=== PATIENT | female | born 1935 | race Caucasian/White ===

== ENCOUNTER 2017-11-09 10:07 | Outpatient (CLI) | payer BC, MEDICARE | END 2017-11-09 10:08 | disposition home or self-care (01) | LOC: BICMRI 10:07 | PROVIDERS: ATTEND Nurse Practitioner Family | DX: M48.062 Spinal stenosis, lumbar region with neurogenic claudication (principal) | CPT/HCPCS: 72148 ==

== ENCOUNTER 2017-12-12 13:59 | Outpatient (CLI) | payer BC, MEDICARE ==
[2017-12-12 15:31] LABS: Anion Gap 11 mmol/L (10-20); BUN (Urea Nitrogen) 11 mg/dL (9.8-20.1); Calc. Creatinine Clearance 0 mL/min (70-130); Calcium 9.8 mg/dL (7.8-10.44); Carbon Dioxide 26 mmol/L (23-31); Chloride 98 mmol/L (98-107); Estimated GFR-MDRD 64; Glucose 104 mg/dL (83-110); Potassium 4.1 mmol/L (3.5-5.1); Sodium 131 mmol/L (136-145)
== END 2017-12-12 14:00 | disposition home or self-care (01) ==
LOC: LABBT 13:59
PROVIDERS: ATTEND Neurological Surgery
DX: Z01.818 Encounter for other preprocedural examination (principal); M54.16 Radiculopathy, lumbar region
CPT/HCPCS: 80048

== ENCOUNTER 2017-12-16 05:38 | Day surgery (SDC) | payer BC, MEDICARE ==
[2017-12-12 14:18] VITALS: BMI 23.6
--- NOTE | 2017-12-15 19:35 | HP ---
HISTORY OF PRESENT ILLNESS: Ms. Knox is a very pleasant 82-year-old woman presenting for roughly 6 months' worth of right lower extremity L4 pain. She previously had left lower extremity L4 pains, w hich were treated well with epidural steroid injections, but as that improved, her right side flared and it has now not been amenable to the same injection. She has an MRI from [facility] that rev eals severe right-sided foraminal narrowing at L4. She does also have severe stenosis to the left at L3, but this again is no longer a problem. PAST MEDICAL HISTORY: Significant for gastroesophageal reflux disease, hypertension, hyperlipidemia, anxiety, osteoarthritis. CURRENT MEDICATIONS: Aspirin, tramadol, gabapentin, vitamin D, meloxicam, omeprazole, alprazolam, hy drochlorothiazide, atorvastatin, and levothyroxine. PAST SURGICAL HISTORY: Tonsillectomy, hysterectomy, cataract resection. PHYSICAL EXAMINATION: NEUROLOGIC: The patient is alert and oriented x3. Her gait is slow and antalgic. Lower extremity m otor exam reveals normal bilateral lower extremity strength. ASSESSMENT: Lumbar radiculopathy. PLAN: Dr. Hutchinson met with the patient, reviewed imaging, and advocated for a right L4-L5 facetectomy and foraminotomy. He explained to the patient the risks, benefits, and alternatives of the procedure . The patient expressed understanding and would like to move forward with surgery as discussed. I d o believe the patient is mentally competent and capable of making medical decisions for herself and w e will proceed with surgery as planned.
[2017-12-16] MEDS ORDERED: CEFAZOLIN/Water 2 GM/20 ML SYRINGE ONE ×2 (06:05→11:33)
[2017-12-16] MEDS ORDERED: Bupivacaine HCl 0.5%/Epinephrine 1:200,000/PF 30 ml Vial ONE (06:16)
[2017-12-16] MEDS ORDERED: Thrombin 5000 UNITS/5 ML VIAL ONE (06:16)
[2017-12-16] MEDS ORDERED: Fentanyl 100 MCG/2 ML VIAL ONE ×2 (06:30→09:08)
--- NOTE | 2017-12-16 09:50 | OP ---
DATE OF PROCEDURE: 12/16/2017 SURGEON: Randy Hutchinson M.D. IT SALES EXECUTIVE: Zak Dow PA-C INDICATION: Pain. DIAGNOSIS: Lumbar radiculopathy. PROCEDURE: Right L4 facetectomy. ANESTHESIA: General. TECHNIQUE: The patient was brought into the operating room and placed under general anesthesia. She was flipped from a supine or prone position on the operating room table. A linear incision was plan chandler over the L4 segment. After prepping and draping and after an appropriate operative pause, the in cision was created. The soft tissues were swept right of midline. A self-retaining retractor was pl aced in the wound for optimal exposure. After confirming the appropriate level with C-arm fluoroscop y, a high-speed cutting drill bit as well as 2, 3 and 4 mm Kerrisons were used to remove the facet marck int on the right at L4. The exiting L4 nerve root was identified and found to be decompressed at the end of the procedure. The wound was irrigated. Hemostasis was maintained throughout. The wound wa s then closed in anatomic layers and a pressure dressing was applied. There were no known procedural complications.
[2017-12-16] MEDS ORDERED: PHENYLEPHRINE-NS 100 MCG/ML 10 ML SYRINGE ONE (19:52)
[2017-12-16] MEDS ORDERED: ePHEDrine/0.9% NaCl/PF SYRINGE 50 mg/10 ml ONE (19:52)
[2017-12-16] MEDS ORDERED: PROPOFOL 200 MG/20 ML VIAL ONE (19:52)
[2017-12-16] MEDS ORDERED: Dexamethasone 20 MG/5 ML VIAL ONE (19:52)
[2017-12-16] MEDS ORDERED: Glycopyrrolate 0.2 MG/ML 5 ML SYRINGE ONE (19:52)
[2017-12-16] MEDS ORDERED: Lidocaine 1% PF 5 ML VIAL ONE (19:52)
== END 2017-12-16 13:18 | disposition home or self-care (01) ==
LOC: SDC 05:38
PROVIDERS: ATTEND Neurological Surgery
PROC: 01NB0ZZ Release Lumbar Nerve, Open Approach (ICD-10-PCS; principal; 2017-12-16)
DX: M54.16 Radiculopathy, lumbar region (principal); I10 Essential (primary) hypertension; E78.5 Hyperlipidemia, unspecified; M19.90 Unspecified osteoarthritis, unspecified site; K21.9 Gastro-esophageal reflux disease without esophagitis; F41.9 Anxiety disorder, unspecified; Z79.82 Long term (current) use of aspirin; Z79.899 Other long term (current) drug therapy; Z98.890 Other specified postprocedural states
CPT/HCPCS: 76001; 96374; J0670; J1100; J2001; J2704; J3010; J7620

== ENCOUNTER 2018-07-04 16:53 | Emergency (ER) | payer BC, MEDICARE ==
[~2018-07-04 16:53] MED LIST: ISOVUE-370 76%-LOCM 1 ML ONE
[2018-07-04 17:33] LABS: #Basophils 0.1 thou/uL (0.0-0.2); #Eosinphils 0.3 thou/uL (0.0-0.7); #Lymphocytes 3.3 thou/uL (1.20-3.40); #Monocytes 0.8 thou/uL (0.11-0.59); #Neutrophils 5.5 thou/uL (1.40-6.50); %Basophils 0.9 % (0.0-1.0); %Eosinophils 2.8 % (0.0-10.0); %Lymphocytes 33.2 % (21.0-51.0); %Monocytes 7.7 % (0.0-10.0); %Neutrophils 55.4 % (42.0-75.0); Hemoglobin 13.4 g/dL (12.0-16.0); Mean Corpuscular Hemoglobin 29.3 pg (27.0-31.0); Mean Corpuscular Volume 88.9 fL (78.0-98.0); Mean Platelet Volume 8.2 fL (7.4-10.4); Platelet Count 288 thou/uL (130-400); RBC Distribution Width 12.4 % (11.5-14.5); Red Blood Cell (RBC) Count 4.59 mill/uL (4.20-5.40); White Blood Cell (WBC) Count 9.9 thou/uL (4.8-10.8)
[2018-07-04 17:37] LABS: PTT 34.4 SEC (22.9-36.1); Prothrombin Time 13.5 SEC (12.0-14.7)
[2018-07-04 17:44] LABS: ALT (SGPT) 15 U/L (8-55); AST (SGOT) 24 U/L (5-34); Albumin 4.2 g/dL (3.4-4.8); Alkaline Phosphatase 60 U/L (40-150); Anion Gap 11 mmol/L (10-20); BUN (Urea Nitrogen) 16 mg/dL (9.8-20.1); Bilirubin, Total 0.9 mg/dL (0.2-1.2); Calc. Creatinine Clearance 0 mL/min (70-130); Calcium 9.3 mg/dL (7.8-10.44); Carbon Dioxide 27 mmol/L (23-31); Chloride 97 mmol/L (98-107); Estimated GFR-MDRD 57; Globulin 2.9 g/dL (2.4-3.5); Glucose 108 mg/dL (83-110); Lipase 17 U/L (8-78); Potassium 3.4 mmol/L (3.5-5.1); Protein, Total 7.1 g/dL (6.0-8.3); Sodium 132 mmol/L (136-145)
[2018-07-04 17:47] LABS: Troponin I Less than 0.010 ng/mL (< 0.028)
[2018-07-04] MEDS ORDERED: Pantoprazole 40 MG VIAL ONE (18:31)
[2018-07-04] MEDS ORDERED: Mag-Al 1200 mg/1200 mg/30 ML UDCUP ONE (18:33)
[2018-07-04] MEDS ORDERED: Lidocaine Viscous Sol 2% 15 ml UD Cup ONE (18:33)
[2018-07-04 19:26] LABS: Bilirubin Negative (Negative); Blood, Urine Small (Negative); Clarity TURBID (Clear); Glucose, Urine (Dipstick) Negative (Negative); Leukocyte Large (Negative); Nitrite Positive (Negative); Protein, Urine (Dipstick) Trace mg/dL (Neg-Trace); Specific Gravity, Urine 1.017 (1.002-1.036); pH, Urine 7.5 (5.0-9.0)
[2018-07-04 19:29] LABS: Bacteria/HPF 4+ HPF (None Seen); Hyaline Casts/LPF 7-10 HYALINE CAST LPF (0-3 Hyaline); Pathc Cast-AUWi Flag 1.88 (0-2.49); Squamous Epithelial 0-3 HPF (0-3)
--- NOTE | 2018-07-04 19:50 | RAD ---
PORTABLE CHEST: 07/04/18 HISTORY: Epigastric pain. The lungs appear clear. No infiltrate or vascular congestion. Heart size is normal. IMPRESSION: No acute lung process apparent. POS: [facility]
--- NOTE | 2018-07-04 20:14 | CT ---
CT ABDOMEN AND PELVIS WITH IV CONTRAST: 07/04/18 Multiple axial tomograms obtained through the abdomen and pelvis with IV enhancement. INDICATIONS: Epigastric pain. Nausea. No comparison. An abdominal ultrasound study from May 2013 confirmed cholelithiasis. FINDINGS: The lung bases are clear. The liver, spleen, and pancreas unremarkable. There is a large calcified gallstone in the gallbladder fundus measuring 1.5 cm diameter. Mild gallbladder distension and mild gallbladder wall prominence. No pericholecystic edema or inflammation identified. Adrenal glands appear normal. Kidneys unremarkab le. No hydronephrosis. Small bowel loops normal caliber. Stool throughout the colon. Diverticulosis of the left colon and sigmoid. No definite evidence of div erticulitis. Urinary bladder is mildly distended and unremarkable. Aorta normal caliber. No mass or a denopathy apparent. IMPRESSION: 1. Cholelithiasis. 2. Otherwise no acute process. POS: [facility]
== END 2018-07-04 19:37 | disposition home or self-care (01) ==
LOC: ERS 16:53
DX: K80.20 Calculus of gallbladder without cholecystitis without obstruction (principal); E03.9 Hypothyroidism, unspecified; E78.5 Hyperlipidemia, unspecified; I10 Essential (primary) hypertension; K21.9 Gastro-esophageal reflux disease without esophagitis; F41.9 Anxiety disorder, unspecified; Z79.899 Other long term (current) drug therapy; Z79.82 Long term (current) use of aspirin
CPT/HCPCS: 71045; 74177; 80053; 81003; 81015; 82274; 82553; 83605; 83690; 84484; 85025; 85610; 85730; 93005; 96374; C9113

== ENCOUNTER 2018-07-14 10:14 | Day surgery (SDC) | payer BC, MEDICARE ==
[2018-07-13 10:58] VITALS: BMI 20.9
[2018-07-14] MEDS ORDERED: Ketorolac Tromethamine 30 MG/ML VIAL ONE (10:45)
[2018-07-14] MEDS ORDERED: Levofloxacin 500 mg/D5W 100 ml Premix Bag ONE (10:46)
[2018-07-14] MEDS ORDERED: ePHEDrine/0.9% NaCl/PF SYRINGE 50 mg/10 ml ONE (11:25)
[2018-07-14] MEDS ORDERED: PROPOFOL 200 MG/20 ML VIAL ONE (11:25)
[2018-07-14] MEDS ORDERED: Bupivacaine HCl 0.5%/Epinephrine 1:200,000/PF 30 ml Vial ONE (12:02)
[2018-07-14] MEDS ORDERED: Fentanyl 100 MCG/2 ML VIAL ONE ×2 (12:07→13:35)
[2018-07-14] MEDS ORDERED: Ondansetron PF 4 MG/2 ML Vial ONE (14:16)
[2018-07-14] MEDS ORDERED: Promethazine HCl 25 MG/ML VIAL ONE (14:45)
--- NOTE | 2018-07-17 12:10 | OP ---
DATE OF PROCEDURE: 07/14/2018 PREOPERATIVE DIAGNOSIS: Chronic cholecystitis, cholelithiasis, . POSTOPERATIVE DIAGNOSIS: Chronic cholecystitis, cholelithiasis . PROCEDURE PERFORMED: Laparoscopic video cholecystectomy. ANESTHESIA: General, local of 0.5% Marcaine with epinephrine 30 mL. DESCRIPTION OF PROCEDURE: The patient was taken to the operating room under general anesthesia. The abdomen was prepared with ChloraPrep, draped in routine fashion. Local anesthetic was infiltrated in the skin and subcutaneous tissues about the operative site, 0.5% Marcaine with epinephrine was used, 30 mL total volume used. Infraumbilical incision was made. Pneumoperitoneum to 15 mmHg was obtained with a Veress needle, replaced with a 5 port and laparoscope was inserted. A right subxiphoid incision was made, a 11 port placed, right subcostal incision was made. Midclavicular and anterior axillary line with 5 ports placed. Liver appeared to be normal. Gallbladder was acutely inflamed. Fundus was grasped and reflected cephalad. Cystic artery and duct dissected free. Critical view obtain. Cystic artery was double clipped proximally dividing, the gallbladder dissected free from liver bed, obtaining good hemostasis prior to visualization. No attachment. Gallbladder and large stone removed and submitted to Pathology. Good hemostasis was ensured with the cautery. Irrigated pneumoperitoneum was evacuated. All instrument removed and all skin incisions were approximated with interrupted subdermal 4-0 Monocryl and [place] glue applied. Job ID: [id number]
== END 2018-07-14 16:22 | disposition home or self-care (01) ==
LOC: SDC 10:14
PROVIDERS: ATTEND Specialist
PROC: 0FT44ZZ Resection of Gallbladder, Percutaneous Endoscopic Approach (ICD-10-PCS; principal; 2018-07-14)
DX: K80.10 Calculus of gallbladder with chronic cholecystitis without obstruction (principal)
CPT/HCPCS: 88304; 96374; J0131; J0670; J1885; J1956; J2405; J2550; J2704; J3010

== ENCOUNTER 2019-03-17 15:26 | Emergency (ER) | payer BC, MEDICARE ==
[2019-03-17 15:56] LABS: #Basophils 0.1 thou/uL (0.0-0.2); #Eosinphils 0.3 thou/uL (0.0-0.7); #Lymphocytes 2.6 thou/uL (1.20-3.40); #Monocytes 0.7 thou/uL (0.11-0.59); #Neutrophils 3.7 thou/uL (1.40-6.50); %Basophils 1.1 % (0.0-1.0); %Eosinophils 3.8 % (0.0-10.0); %Lymphocytes 34.8 % (21.0-51.0); %Monocytes 9.8 % (0.0-10.0); %Neutrophils 50.5 % (42.0-75.0); Hemoglobin 11.9 g/dL (12.0-16.0); Mean Corpuscular HGB CONC 34.4 g/dL (32.0-36.0); Mean Corpuscular Hemoglobin 31.5 pg (27.0-31.0); Mean Corpuscular Volume 91.5 fL (78.0-98.0); Mean Platelet Volume 7.9 fL (7.4-10.4); Platelet Count 196 thou/uL (130-400); RBC Distribution Width 12.1 % (11.5-14.5); Red Blood Cell (RBC) Count 3.78 mill/uL (4.20-5.40); White Blood Cell (WBC) Count 7.4 thou/uL (4.8-10.8)
--- NOTE | 2019-03-17 16:12 | RAD ---
EXAM: CHEST ONE VIEW: 03/17/19 HISTORY: Dyspnea, shortness of breath. COMPARISON: 07/04/18. FINDINGS: Heart size is within normal limits. Mild stable linear and interstitial increased markings evidence f or some stable chronic lung change. No confluent pneumonia, overt edema, or pleural effusion. IMPRESSION: No significant acute intrathoracic disease. Atherosclerosis of the aorta with ectasia. POS: [facility]
[2019-03-17 16:32] LABS: ALT (SGPT) 10 U/L (8-55); AST (SGOT) 17 U/L (5-34); Albumin 4.2 g/dL (3.4-4.8); Alkaline Phosphatase 66 U/L (40-150); Anion Gap 14 mmol/L (10-20); BUN (Urea Nitrogen) 27 mg/dL (9.8-20.1); Bilirubin, Total 0.6 mg/dL (0.2-1.2); Calc. Creatinine Clearance 0 mL/min (70-130); Calcium 9.7 mg/dL (7.8-10.44); Carbon Dioxide 26 mmol/L (23-31); Chloride 94 mmol/L (98-107); Estimated GFR-MDRD 41; Globulin 2.7 g/dL (2.4-3.5); Glucose 101 mg/dL (83-110); Potassium 4.1 mmol/L (3.5-5.1); Protein, Total 6.9 g/dL (6.0-8.3); Sodium 130 mmol/L (136-145)
== END 2019-03-17 18:40 | disposition home or self-care (01) ==
LOC: ERS 15:26
DX: J04.0 Acute laryngitis (principal); R06.00 Dyspnea, unspecified; E03.9 Hypothyroidism, unspecified; E78.5 Hyperlipidemia, unspecified; I10 Essential (primary) hypertension; K21.9 Gastro-esophageal reflux disease without esophagitis; F41.9 Anxiety disorder, unspecified; Z79.899 Other long term (current) drug therapy
CPT/HCPCS: 71045; 80053; 83880; 84484; 85025; 93005

== ENCOUNTER 2019-10-20 10:34 | Inpatient (IN) | payer BC, MEDICARE ==
--- NOTE | 2019-10-20 11:41 | CT ---
EXAM: CT Brain WO Con PROVIDED CLINICAL HISTORY: Altered mental status COMPARISON: None FINDINGS: There is extensive intraventricular hemorrhage which appears acute, primarily within the right latera l ventricle but also within the left lateral ventricle, third and fourth ventricles. There is no evidence for hydrocephalus. There is no shift of the midline structures. The basilar cisterns are pat ent. Chronic microvascular ischemic changes are seen involving the cerebral white matter. There is no evidence for parenchymal or extra-axial hemorrhage. The extra cranial soft tissues and osseous str uctures demonstrate an unremarkable CT appearance. IMPRESSION: Intraventricular hemorrhage without hydrocephalus. Cause is not evident. Follow-up brain MRI with and without IV contrast recommended. Findings communicated to Dr. Corbin 11:38 AM 10/20/2019.
[2019-10-20] MEDS ORDERED: niCARdipine 20MG In NaCl 20 MG/200 ML BAG ONE (11:53)
[2019-10-20] MEDS ORDERED: CCU Electrolyte Replacement 1 EACH IVPB ONE (11:57)
[2019-10-20] MEDS ORDERED: Docusate 100 MG CAP PO PRN ×2 (11:57→17:37)
[2019-10-20] MEDS ORDERED: Labetalol HCl 100 MG/20 ML VIAL SLOW IVP PRN (11:57)
[2019-10-20] MEDS ORDERED: Ondansetron PF 4 MG/2 ML Vial IVP PRN (11:57)
[2019-10-20] MEDS ORDERED: Sodium Chloride 0.9% 1,000 ML IV SCH (12:00)
[2019-10-20] MEDS ORDERED: hydrALAZINE 20 MG/ML VIAL SLOW IVP PRN (12:00)
[2019-10-20] MEDS ORDERED: Magnesium Oxide 400 MG TAB PO PRN ×4 (12:28→17:40)
[2019-10-20] MEDS ORDERED: Potassium Phosphate 9 MMOL in Sodium Chloride 0.9% 100 ML IVPB PRN ×2 (12:28→17:41)
[2019-10-20] MEDS ORDERED: CCU ELECTROLYTE REPLACEMENT PROTOCOL FS PRN ×2 (12:28→17:39)
[2019-10-20] MEDS ORDERED: Potassium Chloride 40 MEQ in Premix Bag 1 BAG IVPB PRN ×2 (12:28→17:39)
[2019-10-20] MEDS ORDERED: PHOS-NAK 1 PKT PACK PO PRN ×4 (12:28→17:41)
[2019-10-20] MEDS ORDERED: Potassium Phosphate 12 MMOL in Sodium Chloride 0.9% 250 ML 250 ML IV PRN ×2 (12:28→17:41)
[2019-10-20] MEDS ORDERED: Potassium Chloride 20 MEQ TAB PO PRN ×2 (12:28→17:38)
[2019-10-20] MEDS ORDERED: Potassium Chloride 40 MEQ in Sodium Chloride 0.9% 250 ML 250 ML IVPB PRN ×2 (12:28→17:39)
[2019-10-20] MEDS ORDERED: Magnesium 2 GM/50 ML 2 GM in Premix Bag 1 BAG IVPB PRN ×2 (12:28→17:40)
[2019-10-20] MEDS ORDERED: Potassium Phosphate 15 MMOL in Sodium Chloride 0.9% 250 ML 250 ML IV PRN ×2 (12:28→17:41)
[2019-10-20 12:30] LABS: #Basophils 0.1 thou/uL (0.0-0.2); #Eosinphils 0.2 thou/uL (0.0-0.7); #Lymphocytes 2.3 thou/uL (1.20-3.40); #Monocytes 0.8 thou/uL (0.11-0.59); #Neutrophils 4.6 thou/uL (1.40-6.50); %Basophils 1.1 % (0.0-1.0); %Lymphocytes 28.5 % (21.0-51.0); %Monocytes 10.1 % (0.0-10.0); %Neutrophils 58.3 % (42.0-75.0); Mean Corpuscular HGB CONC 34.2 g/dL (32.0-36.0); Mean Corpuscular Hemoglobin 32.2 pg (27.0-31.0); Mean Corpuscular Volume 94.1 fL (78.0-98.0); Mean Platelet Volume 8.2 fL (7.4-10.4); Platelet Count 204 thou/uL (130-400); RBC Distribution Width 11.7 % (11.5-14.5); Red Blood Cell (RBC) Count 4.04 mill/uL (4.20-5.40); White Blood Cell (WBC) Count 7.9 thou/uL (4.8-10.8)
[2019-10-20 12:36] LABS: PTT 35.4 SEC (22.9-36.1); Prothrombin Time 12.8 SEC (12.0-14.7)
[2019-10-20 12:52] LABS: ALT (SGPT) 12 U/L (8-55); AST (SGOT) 20 U/L (5-34); Albumin 4.6 g/dL (3.4-4.8); Alkaline Phosphatase 44 U/L (40-110); Anion Gap 15 mmol/L (10-20); BUN (Urea Nitrogen) 25 mg/dL (9.8-20.1); CK (CPK) 83 U/L (29-168); Calc. Creatinine Clearance 0 mL/min (70-130); Carbon Dioxide 29 mmol/L (23-31); Chloride 92 mmol/L (98-107); Estimated GFR-MDRD 46; Globulin 3.1 g/dL (2.4-3.5); Glucose 86 mg/dL (83-110); Lipase 14 U/L (8-78); Potassium 3.5 mmol/L (3.5-5.1); Protein, Total 7.7 g/dL (6.0-8.3); Sodium 132 mmol/L (136-145)
[2019-10-20 13:12] LABS: CKMB 1.7 ng/mL (0-6.6)
--- NOTE | 2019-10-20 13:16 | HP ---
HISTORY OF PRESENT ILLNESS: Ms. Knox is a very pleasant 84-year-old woman, actually known to us from prior evaluation and surgery for lumbar back problems, who presents to the emergency department for roughly 40 days worth of slight confusion and perhaps cognitive slowness as compared to her normal baseline, where she is a sharp, independent woman, who actually continues to be gainfully employed. Her daughter had conversations with her on and Tuesday about coming in to be evaluated for this purpose. The patient declined doing so until this morning, where these symptoms continued to persist and have yet to acutely worsen per se. For this purpose, a CT scan of the head was performed, where she has a large right-sided intraventricular hemorrhage with extension into the left lateral ventricle as well as some into the third ventricle. The right lateral ventricle is particularly the frontal horn. It is nearly cast with acute blood. There perhaps could be some suggestion of mild early hydrocephalus in the third and bilateral lateral ventricles, though this could also be her baseline given diffuse cortical atrophy. Blood pressures initially upon presentation were in the 150 systolic; however, upon my presentation at bedside, she is at 215 systolic. Cardene will need to be started. Dr. Corbin is already on this as he told me upon my arrival until this was happening. PAST MEDICAL HISTORY: Significant for gastroesophageal reflux disease, hypertension, hyperlipidemia, anxiety osteoarthritis. CURRENT MEDICATIONS: Tramadol, gabapentin, vitamin D, meloxicam, omeprazole, alprazolam, hydrochlorothiazide, atorvastatin, levothyroxine. PAST SURGICAL HISTORY: Tonsillectomy, hysterectomy, cataract resection, and lumbar decompression. PHYSICAL EXAMINATION: The patient is alert and oriented x3. She actually recalls some specific personal facts about me from our last interaction in 2018. This is quite impressive, particularly given her age and current stage of intracerebral hemorrhage. Bilateral upper and lower extremity examination reveals normal motor strength in all movements of all extremities. She has no sensory disturbance that I discern. Speech is fluent and uninhibited. Cranial nerves are grossly intact, 2 through 11. Pupils are equal, round, and reactive to light. Extraocular moves are intact. ASSESSMENT: Intraventricular hemorrhage and altered mental status. PLAN: At this time, we will admit Ms. Knox to the ICU for close observation. She will need q.1 hour neuro checks, head of bed elevated 30 degrees. Wanting to keep her systolic pressures below 150, and we will put on p.r.n. medications for this purpose. Will repeat a head CT roughly 6 hours after the first several target around 5 o'clock this afternoon. I did have a discussion frankly with the patient and her daughter at bedside regarding the possibility of needing external ventricular drain should she developed obstructive hydrocephalus secondary to this bleed, but hopefully this does not . We will consult the Hospitalist Service for additional help regarding medical management and the care of this patient. We will also need to monitor electrolytes given again intracerebral pathology and age. Job ID: [id number]
[2019-10-20 13:53] LABS: Bacteria/HPF 4+ HPF (None Seen); Bilirubin Negative (Negative); Blood, Urine Negative (Negative); Clarity Turbid (Clear); Glucose, Urine (Dipstick) Normal (Negative); Leukocyte 500 Leu/uL (Negative); Nitrite 2+ (Negative); Protein, Urine (Dipstick) 20 mg/dL (Neg-Trace); RBC/HPF 0-3 HPF (0-3); Renal Epithelial 0-3 HPF (None Seen); Squamous Epithelial 0-3 HPF (0-3); Transitional Epithelial 0-3 HPF (None Seen); Urobilinogen Normal mg/dL (Less than 2); WBC/HPF 21-50 HPF (0-3)
[2019-10-20] MEDS ORDERED: niCARdipine 20MG In NaCl 20 MG/200 ML BAG IVPB SCH ×2 (14:15→17:45)
--- NOTE | 2019-10-20 16:32 | HP ---
PRIMARY CARE PHYSICIAN: Dr. Myra Palacios. HISTORY OF PRESENT ILLNESS: The patient is admitted to [facility] through [facility] on 10/20/2019, with intraventricular hemorrhage, altered mental status. The patient is awake, appropriate. She states she has had headache all day. She admits to confusion for a week, usually about location, currently she is oriented to October 2019, [facility]. She denies any double vision, blurred vision, dizziness, or fainting. She is unaware of any possible loss of consciousness. PAST MEDICAL HISTORY: Pertinent for hypertension, dyslipidemia, hypothyroidism, gastroesophageal reflux disease, osteoarthritis. CURRENT MEDICATIONS: Prior to admission, 1. Levothyroxine 88 mcg a day. 2. Omeprazole 20 mg a day. 3. Hydrochlorothiazide 25 mg a day. 4. Atorvastatin 10 mg a day. 5. Vitamin D3 2000 units a day. 6. Alprazolam 0.125 mg p.o. at bedtime. 7. Aspirin 81 mg a day. 8. Mobic 15 mg a day. 9. Tizanidine 2 mg p.o. t.i.d. 10. Albuterol sulfate two puffs q.6 hours p.r.n. ALLERGIES: SHE HAS NO KNOWN DRUG ALLERGIES. PAST SURGICAL HISTORY: Pertinent for tonsillectomy, hysterectomy, cataract resection bilaterally, lumbar decompression. SOCIAL HISTORY: . Full code status. Her son, Pepe Juarez, is power of harpsichord maker. Next of kin for decision making acutely is Indira Magallon. No tobacco. No alcohol. FAMILY HISTORY: Unremarkable for inheritable diseases. REVIEW OF SYSTEMS: GENERAL: See present illness. No dizziness or fainting. EYES: No double vision, blurred vision, or flashing light. EAR, NOSE, AND THROAT: No ear pain or drainage. No nasal bleeding. No trouble swallowing. CARDIAC: No chest pain, orthopnea, or paroxysmal nocturnal dyspnea. GASTROINTESTINAL: She was nauseated for a while a couple of days ago. She has had no vomiting. No abdominal pain. No diarrhea. RESPIRATIONS: No cough, wheezing, or asthma. GENITOURINARY: She has some stress incontinence. No painful urination. No blood in her urine. MUSCULOSKELETAL: No pain or swelling in her arms or legs. NEUROLOGICAL: No history of stroke, seizures, or focal weakness. PSYCHIATRIC: No history of anxiety or depression. SKIN: No bruising, bleeding, or rash. HEME/LYMPH: No tender or swollen lymph nodes. PHYSICAL EXAMINATION: GENERAL: She is alert, oriented x3, in no distress. VITAL SIGNS: On no medications, blood pressure 130/68, pulse 88, respirations 20, and O2 saturation high 90s on room air. HEAD, EYES, EARS, NOSE, AND THROAT: Pupils are equal, round with implants. Extraocular movements are intact. Sclerae are white. Tympanic membranes are clear. Nose is clear. Oral mucous membranes are wet. Dental hygiene is good. NECK: Supple without jugular venous distention, adenopathy, or thyromegaly. CHEST: Clear to auscultation and percussion. HEART: Regular rate and rhythm. First and second heart sounds are clear. There are no appreciated murmurs or gallops. ABDOMEN: Soft. Bowel sounds are normal. There is no hepatosplenomegaly. No mass. No rebound or bruits. EXTREMITIES: No cyanosis, clubbing, or edema. PULSES: Carotid, radial, femoral, and dorsalis pedis pulses intact and symmetrical. SKIN: Warm and dry without bruises or rash. HEME/LYMPH: No tender or swollen lymph nodes in axilla, inguinal, or cervical area. NEUROLOGICAL: Cranial nerves 2 through 12 are intact. Deep tendon reflexes are symmetric. Strength in her arms and legs is normal and symmetric. Sensation is intact. Fjwguv-mney-larkcw is normal. Plantar response is downgoing toes. DIAGNOSTIC DATA: EKG, regular sinus rhythm, no ST-T abnormality, personally reviewed. CT of the brain reveals intraventricular hemorrhage without hydrocephalus, Followup was suggested, personally reviewed. LABORATORY DATA: White count 7.9, hemoglobin 13.0, platelet count 204,000. INR 1.0. Comprehensive metabolic profile; sodium 132, potassium 3.5, chloride 92, CO2 29, BUN 25, creatinine 1.13. Liver function tests normal. She did have a troponin of 0.029. TSH was 3.5. ASSESSMENT: 1. Encephalopathy, acute. 2. Intraventricular hemorrhage of the brain. 3. Hypertension. 4. Dyslipidemia. 5. Chronic kidney disease, stage 3. 6. Hypothyroidism. PLAN: The patient is currently n.p.o. per Neurosurgery. Cardene IV has been ordered to keep blood pressure below 150. The patient is on gentle IV fluid to 75 mL an hour. Electrolyte replacement has been ordered. Her routine medicines, cholesterol, antihypertensives, thyroid medications will be held for first 24 hours. I have read Zak Dow's history and physical and concur with repeating the CT scan of the brain in 6 hours. Thank you for the consult. We will follow closely with you. Job ID: [id number]
[2019-10-20] MEDS ORDERED: PROVENTIL INHALER 6.7 G (200 INHALATIONS) INH PRN (16:44)
--- NOTE | 2019-10-20 17:22 | CT ---
CT Brain WO Con: 10/20/2019 5:00 PM CLINICAL HISTORY: Follow-up intraventricular hemorrhage. IMAGING TECHNIQUE: Multiple CT images were obtained of the brain without IV contrast. COMPARISON: CT the brain dated October 20, 2019 11:32 AM FINDINGS: Brain: The intraventricular hemorrhage involving the lateral, third and fourth ventricles appears un changed in extent and distribution. No pranay hydrocephalus or midline shift is noted. Chronic small vessel white matter ischemic changes similar appearing. Basilar cisterns remain patent. Mild generali zed cerebral atrophy is similar appearing. Ventricles: Intraventricular hemorrhage as above Skull: Intact. Visualized Paranasal sinuses: Clear. Mastoid air cells:Clear. Extracranial soft tissues:Normal. IMPRESSION: Stable intraventricular hemorrhage.
[2019-10-20] MEDS: hydrALAZINE 20 MG/ML VIAL SLOW IVP PRN (18:10)
[2019-10-20] MEDS: Acetaminophen 650 MG Suppository PR PRN (18:15)
[2019-10-20] MEDS: Sodium Chloride 0.9% 1,000 ML IV SCH (18:15)
[2019-10-20] MEDS: ALPRAZolam 0.25 MG TAB PO SCH (20:10)
[2019-10-20] MEDS: Atorvastatin Calcium 10 MG TAB PO SCH (20:10)
[2019-10-20] MEDS ORDERED: Famotidine/PF 20 mg/2ml Vial SLOW IVP SCH ×2 (21:00)
[2019-10-20] MEDS ORDERED: ALPRAZOLAM 0.125 MG PO SCH (21:00)
[2019-10-21 03:53] LABS: #Basophils 0.1 thou/uL (0.0-0.2); #Eosinphils 0.4 thou/uL (0.0-0.7); #Lymphocytes 2.4 thou/uL (1.20-3.40); #Neutrophils 3.6 thou/uL (1.40-6.50); %Basophils 0.9 % (0.0-1.0); %Eosinophils 5.5 % (0.0-10.0); %Monocytes 12.7 % (0.0-10.0); %Neutrophils 48.9 % (42.0-75.0); Hemoglobin 12.8 g/dL (12.0-16.0); Mean Corpuscular HGB CONC 36.8 g/dL (32.0-36.0); Mean Corpuscular Hemoglobin 34.7 pg (27.0-31.0); Mean Corpuscular Volume 94.4 fL (78.0-98.0); Mean Platelet Volume 8.6 fL (7.4-10.4); Platelet Count 184 thou/uL (130-400); RBC Distribution Width 11.8 % (11.5-14.5); Red Blood Cell (RBC) Count 3.69 mill/uL (4.20-5.40); White Blood Cell (WBC) Count 8.5 thou/uL (4.8-10.8)
[2019-10-21 04:08] LABS: Anion Gap 14 mmol/L (10-20); BUN (Urea Nitrogen) 19 mg/dL (9.8-20.1); Calc. Creatinine Clearance 49 mL/min (70-130); Calcium 9.3 mg/dL (7.8-10.44); Carbon Dioxide 25 mmol/L (23-31); Chloride 96 mmol/L (98-107); Estimated GFR-MDRD 67; Glucose 67 mg/dL (83-110); Sodium 132 mmol/L (136-145)
[2019-10-21] MEDS: Acetaminophen 650 MG Suppository PR PRN (04:08)
[2019-10-21] MEDS: Sodium Chloride 0.9% 1,000 ML IV SCH ×2 (04:08→21:32)
[2019-10-21] MEDS: hydrALAZINE 20 MG/ML VIAL SLOW IVP PRN (04:14)
[2019-10-21] MEDS: Levothyroxine Sodium 88 MCG TAB PO SCH (05:07)
[2019-10-21] MEDS ORDERED: CCU Electrolyte Replacement 1 EACH FS ONE (07:16)
[2019-10-21] MEDS ORDERED: Dextrose 5% in Water 1,000 ML IV PRN (07:16)
[2019-10-21] MEDS ORDERED: Dextrose 50% Abboject 50 ML SYRINGE SLOW IVP PRN (07:16)
--- NOTE | 2019-10-21 08:12 | PRG ---
DATE OF SERVICE: 10/21/2019 Ms. Yang is on the second day of her hospital stay for intraventricular hemorrhage. Overnight, she has done well. She is little drowsy this morning as neuro check has been q.1 hour. She has not slept terribly large but otherwise looks quite well. From a neurologic status, she is out of baseline, has no additional complaints. Plan today is MRI scan of the brain as long as it is okay we can move her out of the ICU. She is somewhat hypokalemic and hyponatremic, sodium is 132, potassium is 3.0. We will need to initiate correction protocols and get recheck this later today. Otherwise, I think she is doing quite well. Job ID: [id number]
[2019-10-21] MEDS ORDERED: Potassium Chloride 40 MEQ in Sodium Chloride 0.9% 250 ML 250 ML IVPB SCH (08:15)
[2019-10-21] MEDS ORDERED: Aspirin Chewable 81 MG TAB PO SCH (09:00)
[2019-10-21] MEDS ORDERED: Hydrochlorothiazide 25 MG TAB PO SCH (09:00)
[2019-10-21] MEDS: Morphine 2 MG/ML SYRINGE SLOW IVP PRN ×2 (09:14→16:00)
[2019-10-21] MEDS: Ondansetron PF 4 MG/2 ML Vial IVP PRN ×2 (09:15→15:57)
[2019-10-21] MEDS: Cyanocobalamin (Vitamin B-12) 1,000 MCG TAB PO SCH (09:34)
--- NOTE | 2019-10-21 09:54 | CON ---
DATE OF CONSULTATION: HISTORY OF PRESENT ILLNESS: Maria A Knox is an 84-year-old female, presented to the hospital with encephalopathy, nausea, vomiting, and confusion. She had an imaging study done in the ER, which showed evidence of intraventricular hemorrhage. She is therefore admitted to the ICU, reason for consult. Former smoker, quit smoking 50 years ago. No alcohol abuse. PAST MEDICAL HISTORY: High cholesterol, hypertension, hypothyroidism, and arthritis. PAST SURGICAL HISTORY: Cholecystectomy, hysterectomy, and back surgery. SOCIAL AND FAMILY HISTORY: Unremarkable. MEDICATIONS: Home medications: 1. Tizanidine 2 mg 3 times a day. 2. Omeprazole 20. 3. . 4. Synthroid 88. 5. Hydrochlorothiazide. 6. Lipitor 10. 7. Aspirin. 8. ProAir. 9. Xanax. In the hospital, she is on nicardipine drip. ALLERGIES: NONE. REVIEW OF SYSTEMS: Otherwise, 10-point negative. PHYSICAL EXAMINATION: VITAL SIGNS: Temperature 99, blood pressure 126/58, pulse 80, and respirations 18. CHEST: No wheezing or crackles. CARDIAC: Normal S1 and S2. No gallops. ABDOMEN: No mass. LABORATORY AND DIAGNOSTIC DATA: Sodium is low at 132. White count 8000, H and H 12 and 34, platelet count is normal. Urine is unremarkable. I do not see a chest x-ray, but as noted, the initial CT shows intraventricular hemorrhage without hydrocephalus. She is due for an MRI. ASSESSMENT: Intracerebral hemorrhage, former smoker, hypertension, high cholesterol, and hyponatremia. PLAN: I will probably stop the hydrochlorothiazide. This is probably causing the hyponatremia. Input from the MRI. Continue nicardipine. Control blood pressure. Pulmonary/Critical Care will follow while in the ICU. Consultation note, 70 minutes, 50% direct patient care. Job ID: [id number]
--- NOTE | 2019-10-21 09:58 | RAD ---
RADIOGRAPH CHEST 1 VIEW: DATE: 10/21/2019 HISTORY: 84-year-old female with COPD FINDINGS: The thoracic aorta is tortuous and ectatic. There is no evidence of airspace density, cardiomegaly, p ulmonary edema, or pneumothorax. The lateral costophrenic angles are not effaced. IMPRESSION: 1) No acute pulmonary findings. 2) ectasia of thoracic aorta.
--- NOTE | 2019-10-21 11:38 | PRG ---
DATE OF SERVICE: 10/21/2019 Ms. Knox is now one day status post admission for intraventricular hemorrhage. She had a followup CT examination performed, which reveals no significant changes. Neurologically, she is normal with the exception of a mild degree of facial droop. She will go down today for an MRI scan to further evaluate for underlying lesion. We will continue to monitor for symptomatic hydrocephalus. She should soon be safe to transfer to the floor and begin mobilizing with Physical Therapy and Occupational Therapy. Barring anything significant on the MRI with respect to underlying lesion, I believe it is also safe to go ahead and transition her to our hospitalist service for additional medical management and disposition planning. Once the blood has dissipated, we will likely perform additional imaging. Job ID: [id number] MTDD
--- NOTE | 2019-10-21 12:29 | MRI ---
MRI BRAIN WITH AND WITHOUT CONTRAST: DATE: 10/21/2019 HISTORY: 84-year-old female with intraventricular hemorrhage COMPARISON: 10/20/2019 CT TECHNIQUE: Multiplanar, multisequence MRI of the brain performed pre- and post-IV injection of gadolinium based contrast agent. FINDINGS: Large intraventricular hematoma throughout body of right lateral ventricle, trigone, encroaching upon temporal horn. Hematoma within the third ventricle. Small hematoma at posterior aspect of side of left fourth ventricle. The hematomas in the right lateral ventricle and third ventricle are predominantly deoxy hemoglobin, interspersed with some methemoglobin, especially peripherally. Free layering blood is also present in the occipital horns of the lateral ventricles bilaterally, and elsewhere in the third ventricle. Mild to moderate dilation of lateral ventricles bilaterally, especially right temporal horn, and mild to moderate dilation of third ventricle. Normal sized fourth ventricle. At least some of the ventriculomegaly is due to central brain parenchymal volume loss, but there may be an element of mild noncommunicating obstructive hydrocephalus. No blood in the aqueduct of Sylvius. No evidence of enhancing neoplastic tumor, AVM, or dural venous sinus thrombosis. Mild to moderate chronic ischemic white matter changes, especially in periventricular white matter. No mass effect or midline shift. No restricted diffusion. IMPRESSION: 1. Intraventricular hematoma in the right lateral ventricle, third ventricle, and small amount of fou rth ventricle. 2. The cause of this hemorrhage is not evident. 3. There is probably mild, low-grade noncommunicating obstructive hydrocephalus. 4. No significant interval change compared to CT of yesterday
[2019-10-21] MEDS ORDERED: Cipro 250 MG TAB PO SCH ×2 (12:30→20:00)
--- NOTE | 2019-10-21 12:38 | PRG ---
DATE OF SERVICE: 10/21/2019 SUBJECTIVE: The patient is seen and examined at the bedside. She is doing very well. She does not have much complaints to offer. She does not have any problem with her speech. There is no any weakness in her extremities. OBJECTIVE: VITAL SIGNS: Blood pressure is 107/67, pulse is 74, respiratory rate is 21, O2 saturation is 95% on room air. HEENT: Her head is atraumatic and normocephalic. Eyes, PERRLA. Sclerae are nonicteric. Conjunctivae pinkish. Oral mucosa is moist. NECK: Supple. LUNGS: Clear. HEART: S1 and S2 normal. No S3. No S4. ABDOMEN: Soft, nontender. Bowel sounds are present. No organomegaly. EXTREMITIES: No clubbing, cyanosis, or edema. NEUROLOGIC: She is alert and oriented x4. There is no any motor or sensory deficits. My examination is nonfocal. SKIN: No rash or erythema. LABORATORY DATA: White count of 8.5, hemoglobin 12.8, hematocrit 34.8, platelet count is 184,000. Sodium is 132, potassium 3.0, chloride 96, CO2 of 25, creatinine 0.81, and BUN is 19, glucose 67, calcium 9.3. IMPRESSION: 1. Intraventricular cerebral bleed to the right ventricle. 2. Hypokalemia. 3. Hyponatremia and hypochloremia. 4. Renal insufficiency improved with IV fluids. 5. Possible urinary tract infection. 6. Hypothyroidism. 7. Hyperlipidemia. PLAN: The patient is going to have MRI of the brain per Neurosurgery. She is not requiring any antihypertensives except for p.r.n. hydralazine so far. She will continue her thyroid replacement hormone. We will treat her with Cipro for possible UTI and we will do the urine culture and we will continue DVT prophylaxis with SCDs. Job ID: [id number]
[2019-10-21] MEDS ORDERED: Magnevist 469MG/ML 20 ML VIAL ONE (14:27)
[2019-10-21 16:47] LABS: Anion Gap 15 mmol/L (10-20); BUN (Urea Nitrogen) 20 mg/dL (9.8-20.1); Calc. Creatinine Clearance 45 mL/min (70-130); Calcium 9.4 mg/dL (7.8-10.44); Carbon Dioxide 25 mmol/L (23-31); Chloride 99 mmol/L (98-107); Estimated GFR-MDRD 60; Glucose 87 mg/dL (83-110); Magnesium 1.8 mg/dL (1.6-2.6); Potassium 4.7 mmol/L (3.5-5.1); Sodium 134 mmol/L (136-145)
[2019-10-21 17:09] LABS: Free T4 (Free Thyroxine) 1.48 ng/dL (0.70-1.48)
[2019-10-21] MEDS ORDERED: Metoprolol Tartrate 25 MG TAB PO SCH (17:15)
[2019-10-21] MEDS ORDERED: ALPRAZolam 0.25 MG TAB PO SCH (21:00)
[2019-10-21] MEDS: Famotidine/PF 20 mg/2ml Vial SLOW IVP SCH (21:31)
[2019-10-21] MEDS: ALPRAZolam 0.25 MG TAB PO SCH (21:37)
[2019-10-21] MEDS: Atorvastatin Calcium 10 MG TAB PO SCH (21:42)
[2019-10-22 03:39] LABS: #Basophils 0.1 thou/uL (0.0-0.2); #Eosinphils 0.4 thou/uL (0.0-0.7); #Monocytes 0.9 thou/uL (0.11-0.59); #Neutrophils 5.9 thou/uL (1.40-6.50); %Basophils 0.6 % (0.0-1.0); %Lymphocytes 21.7 % (21.0-51.0); %Neutrophils 63.7 % (42.0-75.0); Hemoglobin 11.5 g/dL (12.0-16.0); Mean Corpuscular Hemoglobin 32.1 pg (27.0-31.0); Mean Corpuscular Volume 94.4 fL (78.0-98.0); Mean Platelet Volume 8.1 fL (7.4-10.4); Platelet Count 189 thou/uL (130-400); RBC Distribution Width 11.6 % (11.5-14.5); Red Blood Cell (RBC) Count 3.59 mill/uL (4.20-5.40); White Blood Cell (WBC) Count 9.3 thou/uL (4.8-10.8)
[2019-10-22] MEDS: hydrALAZINE 20 MG/ML VIAL SLOW IVP PRN ×2 (03:44→17:54)
[2019-10-22] MEDS: Morphine 2 MG/ML SYRINGE SLOW IVP PRN ×2 (03:44→09:32)
[2019-10-22 04:00] LABS: Anion Gap 13 mmol/L (10-20); BUN (Urea Nitrogen) 18 mg/dL (9.8-20.1); Calc. Creatinine Clearance 48 mL/min (70-130); Carbon Dioxide 25 mmol/L (23-31); Chloride 100 mmol/L (98-107); Estimated GFR-MDRD 64; Glucose 76 mg/dL (83-110); Potassium 4.5 mmol/L (3.5-5.1); Sodium 133 mmol/L (136-145)
[2019-10-22] MEDS: Ondansetron PF 4 MG/2 ML Vial IVP PRN ×3 (06:16→20:20)
--- NOTE | 2019-10-22 07:50 | PRG ---
DATE OF SERVICE: 10/22/2019 Ms. Knox this morning again is doing well. She is still in the unit for cardiac rhythm concerns per Primary Team now. Dr. Hutchinson officially transferred primary care over to the hospitalist service yesterday. I am seeing this morning to just check back again. She had a small episode of nausea this morning, but otherwise neurologically has appeared excellent. At this time, Neurosurgery will sign off to primary team and sign up for an outpatient followup in the coming 4 to [address] scanning at that time. The patient reconsultation should there be any change in her cognitive and neurologic status. Job ID: [id number]
[2019-10-22] MEDS: Metoprolol Tartrate 25 MG TAB PO SCH (08:44)
[2019-10-22] MEDS: Levothyroxine Sodium 88 MCG TAB PO SCH (08:45)
[2019-10-22] MEDS: Cyanocobalamin (Vitamin B-12) 1,000 MCG TAB PO SCH (08:46)
--- NOTE | 2019-10-22 08:48 | PRG ---
DATE OF SERVICE: 10/22/2019 SUBJECTIVE: Maria A Knox remains in the ICU. Apparently, she had a run of SVT. Cardiology was consulted. Denies any pain or discomfort. OBJECTIVE: VITAL SIGNS: Temperature 98, pulse is 85, blood pressure 140/62, saturations are 92%, and respirations 16. CHEST: No wheezing or crackles. CARDIAC: Normal S1 and S2. No gallops. ABDOMEN: No masses. ASSESSMENT: 1. Hyponatremia. 2. Intracerebral hemorrhage. 3. Hypertension. PLAN: Pulmonary/Critical Care is following while in the ICU. Cardiology was consulted regarding her SVT. Pulmonary will follow while in the ICU. Job ID: [id number]
[2019-10-22] MEDS: Sodium Chloride 0.9% 1,000 ML IV SCH (11:29)
[2019-10-22] MEDS: Acetaminophen 650 MG Suppository PR PRN (11:58)
--- NOTE | 2019-10-22 12:39 | PDOC.HOSPP ---
- Subjective Encounter Date: 10/22/19 Encounter Time: 12:36 Subjective: Ms. Brenner was seen today in follow-up of interventricular hemorrhage, She notes a little headache and nausea, but otherwise no complaints. - Objective Vital Signs & Weight: Vital Signs (12 hours) Pulse Pulse Pulse BP BP BP Pulse Ox 10/22/19 11:34 79 78 159/81 H 159/77 H 10/22/19 08:00 94 L 10/22/19 03:44 73 191/70 H Pulse Ox 10/22/19 11:34 94 L 10/22/19 08:00 10/22/19 03:44 Weight Admit Weight 136 lb 8 oz Weight 136 lb 14.513 oz Most Recent Monitor Data Heart Rate from ECG 80 NIBP 165/77 NIBP BP-Mean 106 Respiration from ECG 20 SpO2 95 I&O: 10/21/19 10/22/19 10/23/19 06:59 06:59 06:59 Intake Total 1824 40 Output Total 1077 4 Balance 747 36 Result Diagrams: 10/22/19 03:28 10/22/19 03:28 Additional Labs: Accuchecks 10/22/19 10:29 POC Glucose 105 Hospitalist ROS - Medication Medications: Active Medications Generic Name Dose Route Start Last Admin Trade Name Freq PRN Reason Stop Dose Admin Acetaminophen 650 mg 10/20/19 18:06 10/22/19 11:58 Tylenol ID 650 mg Q6H PRN Administration Headache/Fever or Pain Alprazolam 0.125 mg 10/20/19 21:00 10/21/19 21:37 Xanax PO 0.125 mg HS AARON Administration Atorvastatin Calcium 10 mg 10/20/19 21:00 10/21/19 21:42 Lipitor PO 10 mg HS AARON Administration Cholecalciferol 2,000 units 10/21/19 09:00 10/22/19 08:45 Vitamin D3 PO 2,000 units DAILY AARON Administration Cyanocobalamin 2,000 mcg 10/21/19 09:00 10/22/19 08:46 Vitamin B-12 PO 2,000 mcg DAILY AARON Administration Famotidine 20 mg 10/21/19 21:00 10/21/19 21:31 Pepcid SLOW IVP 20 mg QPM AARON Administration Hydralazine HCl 5 mg 10/20/19 17:38 10/22/19 03:44 Apresoline SLOW IVP 5 mg Q15MIN PRN Administration SBP > 150, HR < 70 Sodium Chloride 1,000 mls @ 75 mls/hr 10/20/19 17:45 10/22/19 11:29 Normal Saline 0.9% IV 1,000 mls .[id number] AARON Administration Magnesium Sulfate 1 gm/ Sodium 102 mls @ 102 mls/hr 10/20/19 17:40 10/21/19 22:08 Chloride IV 102 mls PRN PRN Administration MAG LEVEL 1.4 - 2.0 Levothyroxine Sodium 88 mcg 10/21/19 06:00 10/22/19 08:45 Synthroid PO 88 mcg 0600 AARON Administration Metoprolol Tartrate 6.25 mg 10/22/19 09:00 10/22/19 08:44 Lopressor PO 6.25 mg DAILY AARON Administration Morphine Sulfate 1 mg 10/21/19 08:36 10/22/19 09:32 Morphine SLOW IVP 1 mg Q2H PRN Administration PAIN 4-10 Ondansetron HCl 4 mg 10/20/19 17:38 10/22/19 11:24 Zofran IVP 4 mg Q6H PRN Administration Nausea/Vomiting Pantoprazole Sodium 40 mg 10/21/19 09:00 10/22/19 08:43 Protonix PO 40 mg DAILY AARON Administration Potassium Chloride 40 meq 10/20/19 17:38 10/21/19 04:28 K-Dur PO 40 meq ASDIR PRN Administration FOR SERUM K+ 2.5 - 3.5 - Exam Eye: PERRL, anicteric sclera Heart: RRR, no murmur, no gallops, no rubs, normal peripheral pulses Respiratory: CTAB, no wheezes, no rales, no ronchi, normal chest expansion, no tachypnea, normal percussion Gastrointestinal: soft, non-tender, normal bowel sounds Extremities: no cyanosis, no edema Neurological: no focal deficits Hosp A/P (1) ICH (intracerebral hemorrhage) Code(s): I61.9 - NONTRAUMATIC INTRACEREBRAL HEMORRHAGE, UNSPECIFIED Status: Acute (2) Hypertension Code(s): I10 - ESSENTIAL (PRIMARY) HYPERTENSION Status: Acute (3) Hypothyroidism Code(s): E03.9 - HYPOTHYROIDISM, UNSPECIFIED Status: Acute - Plan * ICH- etiology is unclear- she is clinically stable with essentially no neurological deficits * She is stable for transition out of the ICU * HTN- blood pressure is a bit elevated- will a low dose of Amlodipine- continue PRN medications * Hypothyroidism- clinically stable * Continue PT/OT and Speech Therapy
[2019-10-22] MEDS ORDERED: Morphine 2 MG/ML SYRINGE SLOW IVP PRN (12:43)
[2019-10-22] MEDS ORDERED: Amlodipine 5 MG TAB PO SCH (13:00)
[2019-10-22] MEDS: cefTRIAXone\\ROCEPHIN 1 GM in Sodium Chloride 0.9% 100 ML IVPB SCH (13:44)
[2019-10-22] MEDS: ALPRAZolam 0.25 MG TAB PO SCH (20:17)
[2019-10-22] MEDS: Atorvastatin Calcium 10 MG TAB PO SCH (20:19)
[2019-10-22] MEDS: Famotidine/PF 20 mg/2ml Vial SLOW IVP SCH (20:19)
[2019-10-23] MEDS: Sodium Chloride 0.9% 1,000 ML IV SCH ×2 (02:59→16:07)
[2019-10-23] MEDS: Levothyroxine Sodium 88 MCG TAB PO SCH (05:43)
[2019-10-23] MEDS: Acetaminophen 325 MG TAB PO PRN ×2 (05:43→10:00)
[2019-10-23] MEDS: hydrALAZINE 20 MG/ML VIAL SLOW IVP PRN ×2 (05:44→21:08)
[2019-10-23] MEDS: Labetalol HCl 100 MG/20 ML VIAL SLOW IVP PRN ×4 (06:18→16:34)
[2019-10-23] MEDS: Cyanocobalamin (Vitamin B-12) 1,000 MCG TAB PO SCH (08:38)
[2019-10-23] MEDS: Metoprolol Tartrate 25 MG TAB PO SCH (08:38)
[2019-10-23] MEDS: Amlodipine 5 MG TAB PO SCH (08:41)
[2019-10-23] MEDS: cefTRIAXone\\ROCEPHIN 1 GM in Sodium Chloride 0.9% 100 ML IVPB SCH (13:08)
--- NOTE | 2019-10-23 14:39 | PDOC.HOSPP ---
- Subjective Encounter Date: 10/23/19 Encounter Time: 14:38 Subjective: Ms. Yang was seen today in follow-up of ICH. She is much more drowsy this morning, and her daughter notes some confusion as well. It was noted that she had some trouble sleeping last night. - Objective Vital Signs & Weight: Vital Signs (12 hours) Temp Pulse Pulse Pulse Resp BP BP 10/23/19 13:09 71 162/66 H 10/23/19 11:29 98.6 F 71 16 10/23/19 10:03 68 177/76 H 10/23/19 09:27 70 72 151/65 H 10/23/19 08:41 68 139/69 10/23/19 07:20 98.1 F 68 14 10/23/19 06:18 78 154/67 H 10/23/19 05:44 76 10/23/19 03:48 98.2 F 76 16 BP BP Pulse Ox 10/23/19 13:09 10/23/19 11:29 154/68 H 96 10/23/19 10:03 10/23/19 09:27 185/77 H 10/23/19 08:41 10/23/19 07:20 139/69 94 L 10/23/19 06:18 10/23/19 05:44 10/23/19 03:48 157/64 H 94 L Weight Admit Weight 136 lb 8 oz Weight 138 lb Most Recent Monitor Data Heart Rate from ECG 70 NIBP 152/65 NIBP BP-Mean 94 Respiration from ECG 18 SpO2 94 I&O: 10/22/19 10/23/19 10/24/19 06:59 06:59 06:59 Intake Total 1824 922 Output Total 1077 7 Balance 747 915 Result Diagrams: 10/22/19 03:28 10/22/19 03:28 Additional Labs: Accuchecks 10/23/19 03:25 POC Glucose 90 Hospitalist ROS - Medication Medications: Active Medications Generic Name Dose Route Start Last Admin Trade Name Freq PRN Reason Stop Dose Admin Acetaminophen 650 mg 10/20/19 18:06 10/22/19 11:58 Tylenol [place] 650 mg Q6H PRN Administration Headache/Fever or Pain Acetaminophen 650 mg 10/23/19 05:09 10/23/19 10:00 Tylenol PO 650 mg Q4H PRN Administration Headache/Fever or Mild Pain Alprazolam 0.125 mg 10/20/19 21:00 10/22/19 20:17 Xanax PO 0.125 mg HS AARON Administration Amlodipine Besylate 2.5 mg 10/23/19 09:00 10/23/19 08:41 Norvasc PO 2.5 mg DAILY AARON Administration Atorvastatin Calcium 10 mg 10/20/19 21:00 10/22/19 20:19 Lipitor PO 10 mg HS AARON Administration Cholecalciferol 2,000 units 10/21/19 09:00 10/23/19 08:38 Vitamin D3 PO 2,000 units DAILY AARON Administration Cyanocobalamin 2,000 mcg 10/21/19 09:00 10/23/19 08:38 Vitamin B-12 PO 2,000 mcg DAILY AARON Administration Famotidine 20 mg 10/21/19 21:00 10/22/19 20:19 Pepcid SLOW IVP 20 mg QPM AARON Administration Sodium Chloride 1,000 mls @ 75 mls/hr 10/20/19 17:45 10/23/19 02:59 Normal Saline 0.9% IV 1,000 mls .[id number] AARON Administration Ceftriaxone Sodium 1 gm/ 100 mls @ 200 mls/hr 10/22/19 13:00 10/23/19 13:08 Sodium Chloride IVPB 100 mls Q24HR AARON Administration Labetalol HCl 10 mg 10/20/19 17:38 10/23/19 13:09 Normodyne SLOW IVP 2 ml Q2H PRN Administration SBP > 150 or DBP > 90 Levothyroxine Sodium 88 mcg 10/21/19 06:00 10/23/19 05:43 Synthroid PO 88 mcg 0600 AARON Administration Metoprolol Tartrate 6.25 mg 10/22/19 09:00 10/23/19 08:38 Lopressor PO 6.25 mg DAILY AARON Administration Morphine Sulfate 2 mg 10/22/19 12:43 10/22/19 15:19 Morphine SLOW IVP 2 mg Q2H PRN Administration PAIN 4-10 Ondansetron HCl 4 mg 10/20/19 17:38 10/22/19 20:20 Zofran IVP 4 mg Q6H PRN Administration Nausea/Vomiting Pantoprazole Sodium 40 mg 10/21/19 09:10/23/19 08:42 Protonix PO 40 mg DAILY AARON Administration - Exam Eye: PERRL, anicteric sclera Heart: RRR, no murmur, no gallops, no rubs Respiratory: CTAB, no wheezes, no rales, no ronchi, normal chest expansion, no tachypnea, normal percussion Gastrointestinal: soft, non-tender, non-distended, normal bowel sounds, no palpable masses, no hepatomegaly Extremities: no cyanosis, no edema Neurological: facial droop (+ mild facial droop.) Hosp A/P (1) ICH (intracerebral hemorrhage) Code(s): I61.9 - NONTRAUMATIC INTRACEREBRAL HEMORRHAGE, UNSPECIFIED Status: Acute (2) Hypertension Code(s): I10 - ESSENTIAL (PRIMARY) HYPERTENSION Status: Acute (3) Hypothyroidism Code(s): E03.9 - HYPOTHYROIDISM, UNSPECIFIED Status: Acute - Plan * ICH- etiology is unclear- * Metabolic encephalopathy- ? etiology- will check a repeat CT scan of the brain to evaluate for re-bleed or extension * Will also check her serum sodium level * HTN- blood pressure is a bit elevated- Amlodipine was added, and will titrate the dose as needed * Hypothyroidism- clinically stable * Continue PT/OT and Speech Therapy
--- NOTE | 2019-10-23 15:22 | CT ---
Head CT without contrast 10/23/2019: COMPARISON: 10/20/2019 HISTORY: Reevaluate intraventricular hemorrhage TECHNIQUE: Axial CT imaging at 5 mm intervals from vertex through skull base without contrast FINDINGS: The imaged paranasal sinuses and mastoid air cells are well-aerated. No displaced calvarial fracture. There is intraventricular hemorrhage within bilateral lateral ventricles, right greater than left. Th ere is also intraventricular hemorrhage in the region of the third ventricle inferiorly, decreased in volume when compared to the prior exam. No intraparenchymal hemorrhage is evident. There is periventricular hypodensity, evidence of small vessel disease. A degree of this periventricu lar hypodensity may be on the basis of subacute minimal flow of CSF. There is ventricular enlargement involving the lateral ventricles and the third ventricle. The third ventricle measures 1.6 cm in transverse dimension, increased from 1.0 cm on the 10/20/2019 exam. Bilateral lateral ventricles measure up to 2.7 cm in transverse dimension in the region of the right atrium and 2.5 cm in the region of the left atrium, increased from 1.8 and 1.9 cm respectively. IMPRESSION: Relatively stable nonspecific intraventricular hemorrhage. Interval enlargement of the la teral ventricles and third ventricle which is suspicious for a degree of developing obstructive hydrocephalus associated with intraventricular hemorrhage.
[2019-10-23 15:32] LABS: ALT (SGPT) 7 U/L (8-55); AST (SGOT) 13 U/L (5-34); Albumin 3.5 g/dL (3.4-4.8); Alkaline Phosphatase 40 U/L (40-110); Anion Gap 13 mmol/L (10-20); BUN (Urea Nitrogen) 15 mg/dL (9.8-20.1); Bilirubin, Total 0.7 mg/dL (0.2-1.2); Calc. Creatinine Clearance 54 mL/min (70-130); Calcium 8.8 mg/dL (7.8-10.44); Carbon Dioxide 24 mmol/L (23-31); Chloride 98 mmol/L (98-107); Estimated GFR-MDRD 74; Globulin 2.5 g/dL (2.4-3.5); Glucose 112 mg/dL (83-110); Potassium 3.5 mmol/L (3.5-5.1); Sodium 131 mmol/L (136-145)
--- NOTE | 2019-10-23 15:56 | PDOC.EVN ---
Event Note - Event Note Event Note: CT scan results were noted. There was an increase in the size of her ventricles. Discussed with Neurosurgery Dr. Adams. Plan will be to move to the ICU, and he will evaluate. It was also noted that her serum sodium has been trending down. I have consulted Nephrology, and will discontinue IV fluids. Check serum and urine osmolality.
--- NOTE | 2019-10-23 17:42 | CON ---
DATE OF CONSULTATION: REASON FOR CONSULTATION: Hyponatremia. HISTORY OF PRESENT ILLNESS: This is a very pleasant 84-year-old female who was admitted on October 20, 2019 and was noted to have intraventricular hemorrhage. The patient denies headache, numbness, tingling, or weakness. Denies any nausea, vomiting, or chest pain. The patient's sodium has dropped from 134 to 131, so I was consulted. The patient is drinking fluids. PAST MEDICAL HISTORY: Hypertension, hypothyroidism, GERD, reflux, osteoarthritis, diverticular hemorrhage. MEDICATIONS: Home medications list reviewed. Hospital medications list reviewed. PAST SURGICAL HISTORY: Significant for tonsillectomy, hysterectomy, cataract surgery, lumbar decompression. SOCIAL HISTORY: No alcohol or drug use. FAMILY HISTORY: Negative for ESRD. ALLERGIES: REVIEWED. REVIEW OF SYSTEMS: Fifteen-point review of system was performed, negative except for positives noted above. HEENT: Eyes intact, no diplopia. Ears: No hearing loss or earache. Nose: No discharge or bleeding. CHEST: No cough or phlegm. ABDOMEN: No nausea or vomiting. GENITOURINARY: No hematuria. No Goldsmith catheter. MUSCULOSKELETAL: No low back pain. No joint swelling or pain. NEUROLOGICAL: No syncope. No seizures. SKIN: No complaints of rash or itching. PSYCHIATRIC: No depression. CONSTITUTIONAL: No weight loss or loss of appetite. PHYSICAL EXAMINATION: GENERAL: The patient is awake and alert. VITAL SIGNS: Afebrile, pulse 70, breathing 16, and blood pressure 141/67. HEENT: Head normocephalic and atraumatic. Eyes intact, no ulcers. Nose intact, no ulcers. Ears intact, no ulcers. NECK: Supple. No JVD. CHEST: Symmetrical and clear. CARDIOVASCULAR: Shows S1 and S2, no rub, no murmur. GASTROINTESTINAL: Abdomen is soft, bowel sounds positive. EXTREMITIES: Show no edema or ulcers. SKIN: Shows no rash or petechiae. MUSCULOSKELETAL: Shows no joint swelling or stiffness. GENITOURINARY: Shows no Goldsmith or CVA tenderness. NEUROLOGIC: Motor intact. Cranial nerves intact. LABORATORY DATA: Reviewed. ASSESSMENT AND PLAN: 1. 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 We would recommend stopping IV fluid and continue fluid restriction. 2. Anemia, stable. 3. Hypertension, stable. 4. Medications based on GFR, appropriate. No indication for hypertonic saline. Job ID: [id number]
[2019-10-23] MEDS: Atorvastatin Calcium 10 MG TAB PO SCH (21:07)
[2019-10-23] MEDS: ALPRAZolam 0.25 MG TAB PO SCH (21:07)
[2019-10-23] MEDS: Famotidine/PF 20 mg/2ml Vial SLOW IVP SCH (21:08)
[2019-10-24 05:46] LABS: #Eosinphils 0.2 thou/uL (0.0-0.7); #Lymphocytes 1.9 thou/uL (1.20-3.40); #Neutrophils 11.1 thou/uL (1.40-6.50); %Basophils 0.3 % (0.0-1.0); %Eosinophils 1.1 % (0.0-10.0); %Lymphocytes 13.2 % (21.0-51.0); %Monocytes 7.1 % (0.0-10.0); %Neutrophils 78.4 % (42.0-75.0); Anion Gap 16 mmol/L (10-20); BUN (Urea Nitrogen) 11 mg/dL (9.8-20.1); Calc. Creatinine Clearance 60 mL/min (70-130); Calcium 9.1 mg/dL (7.8-10.44); Carbon Dioxide 23 mmol/L (23-31); Chloride 90 mmol/L (98-107); Estimated GFR-MDRD 85; Glucose 97 mg/dL (83-110); Hemoglobin 12.8 g/dL (12.0-16.0); Mean Corpuscular HGB CONC 38.7 g/dL (32.0-36.0); Mean Corpuscular Hemoglobin 36.5 pg (27.0-31.0); Mean Corpuscular Volume 94.2 fL (78.0-98.0); Mean Platelet Volume 8.3 fL (7.4-10.4); Platelet Count 188 thou/uL (130-400); Potassium 3.3 mmol/L (3.5-5.1); RBC Distribution Width 11.7 % (11.5-14.5); Sodium 126 mmol/L (136-145); White Blood Cell (WBC) Count 14.1 thou/uL (4.8-10.8)
[2019-10-24] MEDS: Levothyroxine Sodium 88 MCG TAB PO SCH (05:53)
[2019-10-24] MEDS: Labetalol HCl 100 MG/20 ML VIAL SLOW IVP PRN (06:01)
--- NOTE | 2019-10-24 07:21 | PRG ---
DATE OF SERVICE: 10/24/2019 The patient is an 84-year-old female, who suffered acute interventricular hemorrhage on 10/20/2019. She seemed to do well during her admission course and have improvement in her neurologic exam. Her exam was nonfocal except for mild degree of facial droop. She was signed off to the primary team after being stable for several days, but we were asked to reconsult yesterday after some increased drowsiness. We repeated a noncontrast head CT, which did show some slight ventricular enlargement. I visited the patient at the bedside and at that time, she was awake, alert, and oriented x3 and moving everything without difficultly. Her drowsiness appears to wax and wane at times. She also has developed some hyponatremia, sodium 131 yesterday and Nephrology was consulted. Nephrology discontinued her IV fluids for free water restriction and have plan to treat with free water restriction. However, today her sodium is significantly decreased again to 126 today. On exam this morning, the patient is a bit drowsy, but will wake up to stimulation. She is able to tell me her name and where she is at. She is moving all 4s without difficulty. Her pupils are equal. Her noncontrast CT was repeated this morning and actually shows slight improvement in the ventricular size. At this point, we will plan to continue to monitor her mental status and neurologic exam closely. This may be related to the sodium issue she is having as well. Nephrology has been consulted for hyponatremia and we will ask their opinion on addition of possible hypertonic saline or feel salt tabs if she can tolerate. We will follow along closely. Job ID: [id number]
--- NOTE | 2019-10-24 07:28 | CT ---
Exam: Brain CT without IV contrast: Emergency after exam 4 9:00 AM 10/24/2019 This a final report COMPARISON: 10/23/2019 Stable intraventricular hemorrhage with mild hydrocephalus with slight improvement, certainly no wors ening in the amount of hydrocephalus with compared to the prior study. This report is in agreement with a preliminary report.
[2019-10-24] MEDS: Amlodipine 5 MG TAB PO SCH (08:36)
[2019-10-24] MEDS: Metoprolol Tartrate 25 MG TAB PO SCH (08:36)
[2019-10-24] MEDS: Cyanocobalamin (Vitamin B-12) 1,000 MCG TAB PO SCH (08:49)
[2019-10-24] MEDS: Acetaminophen 325 MG TAB PO PRN (09:42)
--- NOTE | 2019-10-24 10:20 | PDOC.HOSPP ---
- Subjective Encounter Date: 10/24/19 Encounter Time: 10:16 Subjective: Ms. Yang was seen today in follow-up of altered mental status following ICH. She is a bit more alert this morning. Her confusion has improved but she is not back to baseline. - Objective Vital Signs & Weight: Vital Signs (12 hours) Temp Pulse BP Pulse Ox 10/24/19 08:36 84 151/63 H 10/24/19 08:00 98.0 F 96 10/24/19 06:01 84 175/77 H 10/24/19 04:00 97.8 F 10/24/19 00:00 98.3 F Weight Admit Weight 136 lb 8 oz Weight 135 lb 2.294 oz Most Recent Monitor Data Heart Rate from ECG 80 NIBP 160/71 NIBP BP-Mean 100 Respiration from ECG 24 SpO2 97 I&O: 10/23/19 10/24/19 10/25/19 06:59 06:59 06:59 Intake Total 922 60 150 Output Total 7 450 100 Balance 915 -390 50 Result Diagrams: 10/24/19 05:17 10/24/19 05:17 Hospitalist ROS - Medication Medications: Active Medications Generic Name Dose Route Start Last Admin Trade Name Freq PRN Reason Stop Dose Admin Acetaminophen 650 mg 10/20/19 18:06 10/22/19 11:58 Tylenol [place] 650 mg Q6H PRN Administration Headache/Fever or Pain Acetaminophen 650 mg 10/23/19 05:09 10/24/19 09:42 Tylenol PO 650 mg Q4H PRN Administration Headache/Fever or Mild Pain Alprazolam 0.125 mg 10/20/19 21:00 10/23/19 21:07 Xanax PO 0.125 mg HS AARON Administration Amlodipine Besylate 2.5 mg 10/23/19 09:00 10/24/19 08:36 Norvasc PO 2.5 mg DAILY AARON Administration Atorvastatin Calcium 10 mg 10/20/19 21:00 10/23/19 21:07 Lipitor PO 10 mg HS AARON Administration Cholecalciferol 2,000 units 10/21/19 09:00 10/24/19 08:49 Vitamin D3 PO 2,000 units DAILY AARON Administration Cyanocobalamin 2,000 mcg 10/21/19 09:00 10/24/19 08:49 Vitamin B-12 PO 2,000 mcg DAILY AARON Administration Famotidine 20 mg 10/21/19 21:00 10/23/19 21:08 Pepcid SLOW IVP 20 mg QPM AARON Administration Hydralazine HCl 5 mg 10/23/19 14:20 10/23/19 21:08 Apresoline SLOW IVP 5 mg Q15MIN PRN Administration SBP >145 Ceftriaxone Sodium 1 gm/ 100 mls @ 200 mls/hr 10/22/19 13:00 10/23/19 13:08 Sodium Chloride IVPB 100 mls Q24HR AARON Administration Labetalol HCl 10 mg 10/20/19 17:38 10/24/19 06:01 Normodyne SLOW IVP 2 ml Q2H PRN Administration SBP > 150 or DBP > 90 Levothyroxine Sodium 88 mcg 10/21/19 06:00 10/24/19 05:53 Synthroid PO 88 mcg 0600 AARON Administration Metoprolol Tartrate 6.25 mg 10/22/19 09:00 10/24/19 08:36 Lopressor PO 6.25 mg DAILY AARON Administration Morphine Sulfate 2 mg 10/22/19 12:43 10/22/19 15:19 Morphine SLOW IVP 2 mg Q2H PRN Administration PAIN 4-10 Ondansetron HCl 4 mg 10/20/19 17:38 10/22/19 20:20 Zofran IVP 4 mg Q6H PRN Administration Nausea/Vomiting Pantoprazole Sodium 40 mg 10/21/19 09:00 10/24/19 08:44 Protonix PO 40 mg DAILY AARON Administration - Exam Eye: PERRL Heart: RRR, no murmur, no gallops, no rubs, normal peripheral pulses Respiratory: CTAB, no wheezes, no rales, no ronchi, normal chest expansion Gastrointestinal: soft, non-tender, non-distended, normal bowel sounds, no palpable masses, no hepatomegaly Extremities: no cyanosis Hosp A/P (1) ICH (intracerebral hemorrhage) Code(s): I61.9 - NONTRAUMATIC INTRACEREBRAL HEMORRHAGE, UNSPECIFIED Status: Acute (2) Hypertension Code(s): I10 - ESSENTIAL (PRIMARY) HYPERTENSION Status: Acute (3) Hypothyroidism Code(s): E03.9 - HYPOTHYROIDISM, UNSPECIFIED Status: Acute - Plan * ICH- etiology is unclear- * Metabolic encephalopathy- I suspect this is due to hyponatremia- management as per Nephrology- urine osmolality is pedning * HTN- blood pressure is a bit elevated- will increase the dose of Amlodipine to 5mg * Hypothyroidism- clinically stable * Continue PT/OT and Speech Therapy * Continue to monitor in the ICU
[2019-10-24 12:32] LABS: Anion Gap 13 mmol/L (10-20); BUN (Urea Nitrogen) 16 mg/dL (9.8-20.1); Calc. Creatinine Clearance 57 mL/min (70-130); Calcium 8.9 mg/dL (7.8-10.44); Carbon Dioxide 25 mmol/L (23-31); Chloride 90 mmol/L (98-107); Estimated GFR-MDRD 81; Glucose 119 mg/dL (83-110); Potassium 3.3 mmol/L (3.5-5.1); Sodium 125 mmol/L (136-145)
[2019-10-24] MEDS ORDERED: Potassium Chloride 20 MEQ TAB PO SCH (13:00)
[2019-10-24] MEDS ORDERED: Tolvaptan 15 MG TAB PO SCH (13:00)
--- NOTE | 2019-10-24 13:22 | PRG ---
DATE OF SERVICE: 10/24/2019 The patient is seen and examined. She is arousable, but relatively somnolent this morning. When aroused, she does move all 4s. According to the staff, her mental status has been waxing and waning and when she is alert, she is generally moving all 4s volitionally and interactive. However, she also has periods where she is quite somnolent, not currently. CT scan yesterday revealed significant ventricular enlargement compared to her initial CT scan. Repeat CT performed this morning shows no meaningful progression and in fact the ventricles are perhaps slightly smaller. 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 This seems to be her waxing and waning mental status, seems to be exacerbated by hyponatremia as well. At this time, she does not require ventriculostomy drainage. We will continue with ICU observation for now and she may very well require drainage should she deteriorate. Discussed in detail with the patient's son. Job ID: [id number]
[2019-10-24] MEDS: cefTRIAXone\\ROCEPHIN 1 GM in Sodium Chloride 0.9% 100 ML IVPB SCH (13:30)
--- NOTE | 2019-10-24 14:09 | PRG ---
DATE OF SERVICE: 10/24/2019 SUBJECTIVE: An 84-year-old female being seen for hyponatremia. The patient denies any nausea, vomiting, or chest pain. PHYSICAL EXAMINATION: GENERAL: The patient is awake and alert. VITAL SIGNS: Afebrile, pulse 75, breathing at 16, blood pressure 119/64. HEENT: Head normocephalic and atraumatic. Eyes intact, no ulcers. Nose intact, no ulcers. Ears intact, no ulcers. NECK: Supple. No JVD. CHEST: Symmetrical and clear. CARDIOVASCULAR: Shows S1 and S2, no rub, no murmur. GASTROINTESTINAL: Abdomen is soft, bowel sounds positive. EXTREMITIES: Show no edema or ulcers. SKIN: Shows no rash or petechiae. MUSCULOSKELETAL: Shows no joint swelling or stiffness. GENITOURINARY: Shows no Goldsmith or CVA tenderness. NEUROLOGIC: Motor intact. Cranial nerves intact. LABORATORY DATA: Labs show sodium is 125, potassium is 3.4, creatinine 0.9. ASSESSMENT AND PLAN: 1. 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 I would recommend starting Samsca and continue fluid restriction. 2. Hypokalemia. Recommend potassium replacement. 3. Hypomagnesemia, would recommend magnesium. 4. Medication based on GFR appropriate. I will recheck sodium again in a couple of hours. If elevated, we will start hypertonic saline. Job ID: [id number]
[2019-10-24 17:13] LABS: Anion Gap 13 mmol/L (10-20); BUN (Urea Nitrogen) 18 mg/dL (9.8-20.1); Calc. Creatinine Clearance 51 mL/min (70-130); Calcium 9.6 mg/dL (7.8-10.44); Carbon Dioxide 27 mmol/L (23-31); Chloride 93 mmol/L (98-107); Estimated GFR-MDRD 72; Glucose 119 mg/dL (83-110); Potassium 4.2 mmol/L (3.5-5.1); Sodium 129 mmol/L (136-145)
[2019-10-24] MEDS: Ondansetron PF 4 MG/2 ML Vial IVP PRN (18:05)
[2019-10-24] MEDS: ALPRAZolam 0.25 MG TAB PO SCH (20:38)
[2019-10-24] MEDS: Famotidine/PF 20 mg/2ml Vial SLOW IVP SCH (20:38)
[2019-10-24] MEDS: Atorvastatin Calcium 10 MG TAB PO SCH (20:38)
[2019-10-25 04:13] LABS: Anion Gap 15 mmol/L (10-20); BUN (Urea Nitrogen) 15 mg/dL (9.8-20.1); Calc. Creatinine Clearance 57 mL/min (70-130); Calcium 9.6 mg/dL (7.8-10.44); Carbon Dioxide 25 mmol/L (23-31); Chloride 93 mmol/L (98-107); Estimated GFR-MDRD 82; Glucose 106 mg/dL (83-110); Potassium 3.8 mmol/L (3.5-5.1); Sodium 129 mmol/L (136-145)
[2019-10-25] MEDS: Levothyroxine Sodium 88 MCG TAB PO SCH (06:16)
[2019-10-25] MEDS: Amlodipine 5 MG TAB PO SCH (08:26)
[2019-10-25] MEDS: Cyanocobalamin (Vitamin B-12) 1,000 MCG TAB PO SCH (08:27)
[2019-10-25] MEDS: Metoprolol Tartrate 25 MG TAB PO SCH (08:27)
--- NOTE | 2019-10-25 08:28 | PRG ---
DATE OF SERVICE: 10/25/2019 The patient has been seen and examined this morning. She awakens easily. She is able to tell me her name and her birthday, but not the location. She is moving all 4s without difficulty. Her mental status seems to wax and wane some as the nurse said earlier, she was A and O x4. Her sodium yesterday was 126. She was evaluated by Nephrology and they have been restricting her free water as well as treating with Samsca. There is some improvement of the sodium today and today's results are 129. The patient's mental status does appear to wax and wane some, but she appears to be appropriate this morning. We will continue to monitor for hydrocephalus closely at this time. She does not appear to need ventriculostomy drainage at this time, however, we will continue to monitor closely. Job ID: [id number] MTDD
--- NOTE | 2019-10-25 10:09 | PRG ---
DATE OF SERVICE: 10/25/2019 Ms. Knox is alert and interactive. It looks that she ate most of her breakfast. While she continues to have her ups and downs, I think there has been some mild improvement and perhaps this is associated with correction of her sodium. At this point, I am not recommending any intervention from a surgical perspective. She probably does have a mild amount of hydrocephalus, but is not sufficiently symptomatic or threatening as to require any ventricular drainage. I think she can safely be moved out of the ICU and we will continue to follow. Job ID: [id number]
[2019-10-25] MEDS: Acetaminophen 650 MG/20.3 ML UDCUP PO PRN ×3 (10:42→22:06)
--- NOTE | 2019-10-25 12:21 | PDOC.HOSPP ---
- Subjective Encounter Date: 10/25/19 Encounter Time: 12:19 Subjective: Ms. Yang was seen today in follow-up of ICH and metabolic encephalopathy. she is improved again today. She is more alert, and less confused. - Objective Vital Signs & Weight: Vital Signs (12 hours) Temp Pulse Pulse Pulse BP BP BP 10/25/19 10:03 80 86 116/70 134/78 10/25/19 08:26 84 133/70 10/25/19 08:00 98.0 F 10/25/19 04:00 98.2 F Pulse Ox Pulse Ox Pulse Ox 10/25/19 10:03 98 98 10/25/19 08:26 10/25/19 08:00 98 10/25/19 04:00 Weight Admit Weight 136 lb 8 oz Weight 129 lb 10.109 oz Most Recent Monitor Data Heart Rate from ECG 98 NIBP 120/75 NIBP BP-Mean 90 Respiration from ECG 22 SpO2 99 I&O: 10/24/19 10/25/19 10/26/19 06:59 06:59 06:59 Intake Total 60 850 500 Output Total 450 950 50 Balance -390 -100 450 Result Diagrams: 10/24/19 05:17 10/25/19 03:28 Hospitalist ROS - Medication Medications: Active Medications Generic Name Dose Route Start Last Admin Trade Name Freq PRN Reason Stop Dose Admin Acetaminophen 650 mg 10/20/19 18:06 10/22/19 11:58 Tylenol SD 650 mg Q6H PRN Administration Headache/Fever or Pain Acetaminophen 650 mg 10/23/19 05:09 10/24/19 09:42 Tylenol PO 650 mg Q4H PRN Administration Headache/Fever or Mild Pain Acetaminophen 650 mg 10/23/19 05:09 10/25/19 10:42 Tylenol Elixir PO 650 mg Q4H PRN Administration pain/fever Alprazolam 0.125 mg 10/20/19 21:00 10/24/19 20:38 Xanax PO 0.125 mg HS AARON Administration Amlodipine Besylate 5 mg 10/25/19 09:00 10/25/19 08:26 Norvasc PO 5 mg DAILY AARON Administration Atorvastatin Calcium 10 mg 10/20/19 21:00 10/24/19 20:38 Lipitor PO 10 mg HS AARON Administration Cholecalciferol 2,000 units 10/21/19 09:00 10/25/19 08:27 Vitamin D3 PO 2,000 units DAILY AARON Administration Cyanocobalamin 2,000 mcg 10/21/19 09:00 10/25/19 08:27 Vitamin B-12 PO 2,000 mcg DAILY AARON Administration Famotidine 20 mg 10/21/19 21:00 10/24/19 20:38 Pepcid SLOW IVP 20 mg QPM AARON Administration Hydralazine HCl 5 mg 10/23/19 14:20 10/23/19 21:08 Apresoline SLOW IVP 5 mg Q15MIN PRN Administration SBP >145 Ceftriaxone Sodium 1 gm/ 100 mls @ 200 mls/hr 10/22/19 13:00 10/24/19 13:30 Sodium Chloride IVPB 100 mls Q24HR AARON Administration Labetalol HCl 10 mg 10/20/19 17:38 10/24/19 06:01 Normodyne SLOW IVP 2 ml Q2H PRN Administration SBP > 150 or DBP > 90 Levothyroxine Sodium 88 mcg 10/21/19 06:00 10/25/19 06:16 Synthroid PO 88 mcg 0600 AARON Administration Metoprolol Tartrate 6.25 mg 10/22/19 09:00 10/25/19 08:27 Lopressor PO 6.25 mg DAILY AARON Administration Morphine Sulfate 2 mg 10/22/19 12:43 10/22/19 15:19 Morphine SLOW IVP 2 mg Q2H PRN Administration PAIN 4-10 Ondansetron HCl 4 mg 10/20/19 17:38 10/24/19 18:05 Zofran IVP 4 mg Q6H PRN Administration Nausea/Vomiting Pantoprazole Sodium 40 mg 10/21/19 09:00 10/25/19 08:27 Protonix PO 40 mg DAILY AARON Administration - Exam Eye: PERRL Heart: RRR, no murmur, no gallops, no rubs, normal peripheral pulses Respiratory: CTAB, no wheezes, no rales, no ronchi, normal chest expansion, no tachypnea Gastrointestinal: soft, non-tender, non-distended, normal bowel sounds, no palpable masses, no hepatomegaly Extremities: no cyanosis, no edema Musculoskeletal: normal tone Psychiatric: normal affect, A&O x 3 Hosp A/P (1) ICH (intracerebral hemorrhage) Code(s): I61.9 - NONTRAUMATIC INTRACEREBRAL HEMORRHAGE, UNSPECIFIED Status: Acute (2) Hypertension Code(s): I10 - ESSENTIAL (PRIMARY) HYPERTENSION Status: Acute (3) Hypothyroidism Code(s): E03.9 - HYPOTHYROIDISM, UNSPECIFIED Status: Acute - Plan * ICH- etiology is unclear- * Metabolic encephalopathy- improved * 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
[2019-10-25 12:38] LABS: Anion Gap 13 mmol/L (10-20); BUN (Urea Nitrogen) 21 mg/dL (9.8-20.1); Calc. Creatinine Clearance 53 mL/min (70-130); Calcium 9.5 mg/dL (7.8-10.44); Carbon Dioxide 27 mmol/L (23-31); Chloride 92 mmol/L (98-107); Estimated GFR-MDRD 78; Glucose 131 mg/dL (83-110); Potassium 3.9 mmol/L (3.5-5.1); Sodium 128 mmol/L (136-145)
--- NOTE | 2019-10-25 12:53 | PRG ---
DATE OF SERVICE: 10/25/2019 SUBJECTIVE: An 84-year-old female, being seen for hyponatremia. The patient denies nausea or chest pain. PHYSICAL EXAMINATION: GENERAL: The patient is awake and alert. VITAL SIGNS: Afebrile, pulse 98, breathing at 16, blood pressure 120/75. HEENT: Head normocephalic and atraumatic. Eyes intact, no ulcers. Nose intact, no ulcers. Ears intact, no ulcers. NECK: Supple. No JVD. Chest: Symmetrical and clear. CARDIOVASCULAR: Shows S1 and S2, no rub, no murmur. GASTROINTESTINAL: Abdomen is soft, bowel sounds positive. EXTREMITIES: Show no edema or ulcers. SKIN: Shows no rash or petechiae. MUSCULOSKELETAL: Shows no joint swelling or stiffness. GENITOURINARY: Shows no Goldsmith or CVA tenderness. NEUROLOGIC: Motor intact. Cranial nerves intact. LABORATORY DATA: Reviewed. ASSESSMENT: 1. Hyponatremia, improved. 2. Chronic kidney disease, stable. 3. Hypertension, stable. I will sign off on this patient. Continue fluid restriction. Job ID: [id number]
[2019-10-25] MEDS: cefTRIAXone\\ROCEPHIN 1 GM in Sodium Chloride 0.9% 100 ML IVPB SCH (13:34)
[2019-10-25] MEDS ORDERED: Tolvaptan 15 MG TAB PO SCH (16:45)
[2019-10-25] MEDS: Atorvastatin Calcium 10 MG TAB PO SCH (20:02)
[2019-10-25] MEDS: Famotidine/PF 20 mg/2ml Vial SLOW IVP SCH (20:03)
[2019-10-25] MEDS: ALPRAZolam 0.25 MG TAB PO SCH (20:03)
[2019-10-26 03:57] LABS: Anion Gap 13 mmol/L (10-20); BUN (Urea Nitrogen) 17 mg/dL (9.8-20.1); Calc. Creatinine Clearance 52 mL/min (70-130); Calcium 9.4 mg/dL (7.8-10.44); Carbon Dioxide 26 mmol/L (23-31); Chloride 94 mmol/L (98-107); Estimated GFR-MDRD 77; Glucose 95 mg/dL (83-110); Potassium 3.7 mmol/L (3.5-5.1); Sodium 129 mmol/L (136-145)
[2019-10-26] MEDS: Levothyroxine Sodium 88 MCG TAB PO SCH (05:18)
[2019-10-26] MEDS: Metoprolol Tartrate 25 MG TAB PO SCH (08:18)
[2019-10-26] MEDS: Amlodipine 5 MG TAB PO SCH (08:20)
[2019-10-26] MEDS: Cyanocobalamin (Vitamin B-12) 1,000 MCG TAB PO SCH (08:25)
--- NOTE | 2019-10-26 08:37 | PRG ---
DATE OF SERVICE: 10/26/2019 The patient had no overnight events, overnight. She continues to have a slightly low sodium level and the most recent value today is 129. She is sitting up in the bed comfortably this morning and has no complaints. This morning, she is awake, alert. She is oriented to person, place, and time. She is moving all 4s without difficulty. With regard to her sodium, she continues to have low levels and I will add p.o. salt tabs 3 g p.o. t.i.d. She has remained stable and I feel it is appropriate to transition her to the floor. I have written orders for this. She will benefit from inpatient rehabilitation and Case Management has been called and consulted as well as screen for inpatient rehab has been placed. Job ID: [id number] [facility]
[2019-10-26] MEDS: Sodium Chloride 1 GM TAB PO SCH ×3 (10:11→20:36)
--- NOTE | 2019-10-26 12:00 | PDOC.HOSPP ---
- Subjective Encounter Date: 10/26/19 Encounter Time: 11:57 Subjective: Ms. Yang was seen today in follow-up of ICH and metabolic encephalopathy. She appears a bit weaker today than yesterday. She is a bit slow to answer, and does not always respond correctly. - Objective Vital Signs & Weight: Vital Signs (12 hours) Temp Pulse BP Pulse Ox 10/26/19 08:20 84 168/92 H 10/26/19 08:00 98 10/26/19 07:00 98.4 F 10/26/19 03:00 98.3 F 10/26/19 00:00 98.6 F Weight Admit Weight 136 lb 8 oz Weight 132 lb 11.492 oz Most Recent Monitor Data Heart Rate from ECG 83 NIBP 148/79 NIBP BP-Mean 102 Respiration from ECG 17 SpO2 99 I&O: 10/25/19 10/26/19 10/27/19 06:59 06:59 06:59 Intake Total 850 1100 140 Output Total 950 900 Balance -100 200 140 Result Diagrams: 10/24/19 05:17 10/26/19 03:06 Hospitalist ROS - Medication Medications: Active Medications Generic Name Dose Route Start Last Admin Trade Name Freq PRN Reason Stop Dose Admin Acetaminophen 650 mg 10/20/19 18:06 10/22/19 11:58 Tylenol TN 650 mg Q6H PRN Administration Headache/Fever or Pain Acetaminophen 650 mg 10/23/19 05:09 10/24/19 09:42 Tylenol PO 650 mg Q4H PRN Administration Headache/Fever or Mild Pain Acetaminophen 650 mg 10/23/19 05:09 10/25/19 22:06 Tylenol Elixir PO 650 mg Q4H PRN Administration pain/fever Alprazolam 0.125 mg 10/20/19 21:00 10/25/19 20:03 Xanax PO 0.125 mg HS AARON Administration Amlodipine Besylate 5 mg 10/25/19 09:00 10/26/19 08:20 Norvasc PO 5 mg DAILY AARON Administration Atorvastatin Calcium 10 mg 10/20/19 21:00 10/25/19 20:02 Lipitor PO 10 mg HS AARON Administration Cholecalciferol 2,000 units 10/21/19 09:00 10/26/19 08:30 Vitamin D3 PO 2,000 units DAILY AARON Administration Cyanocobalamin 2,000 mcg 10/21/19 09:00 10/26/19 08:25 Vitamin B-12 PO 2,000 mcg DAILY AARON Administration Famotidine 20 mg 10/21/19 21:00 10/25/19 20:03 Pepcid SLOW IVP 20 mg QPM AARON Administration Hydralazine HCl 5 mg 10/23/19 14:20 10/23/19 21:08 Apresoline SLOW IVP 5 mg Q15MIN PRN Administration SBP >145 Ceftriaxone Sodium 1 gm/ 100 mls @ 200 mls/hr 10/22/19 13:00 10/25/19 13:34 Sodium Chloride IVPB 100 mls Q24HR AARON Administration Labetalol HCl 10 mg 10/20/19 17:38 10/24/19 06:01 Normodyne SLOW IVP 2 ml Q2H PRN Administration SBP > 150 or DBP > 90 Levothyroxine Sodium 88 mcg 10/21/19 06:00 10/26/19 05:18 Synthroid PO 88 mcg 0600 AARON Administration Metoprolol Tartrate 6.25 mg 10/22/19 09:00 10/26/19 08:18 Lopressor PO 6.25 mg DAILY AARON Administration Morphine Sulfate 2 mg 10/22/19 12:43 10/22/19 15:19 Morphine SLOW IVP 2 mg Q2H PRN Administration PAIN 4-10 Ondansetron HCl 4 mg 10/20/19 17:38 10/24/19 18:05 Zofran IVP 4 mg Q6H PRN Administration Nausea/Vomiting Pantoprazole Sodium 40 mg 10/21/19 09:00 10/26/19 08:21 Protonix PO 40 mg DAILY AARON Administration Sodium Chloride 3 gm 10/26/19 09:00 10/26/19 10:11 Sodium Chloride PO 3 gm TID AARON Administration - Exam Eye: PERRL, anicteric sclera Heart: RRR, no murmur, no gallops, no rubs, normal peripheral pulses Respiratory: CTAB, no wheezes, no rales, no ronchi, normal chest expansion, no tachypnea Gastrointestinal: soft, non-tender, non-distended, normal bowel sounds, no palpable masses, no hepatomegaly Extremities: no cyanosis, no edema Neurological: no new deficit Psychiatric: oriented to person Hosp A/P (1) ICH (intracerebral hemorrhage) Code(s): I61.9 - NONTRAUMATIC INTRACEREBRAL HEMORRHAGE, UNSPECIFIED Status: Acute (2) Hypertension Code(s): I10 - ESSENTIAL (PRIMARY) HYPERTENSION Status: Acute (3) Hypothyroidism Code(s): E03.9 - HYPOTHYROIDISM, UNSPECIFIED Status: Acute - Plan * ICH- etiology is unclear * Metabolic encephalopathy- waxing and waning- likely due to hyponatemia * 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 Irwin- her serum sodium has not made significant improvement. Will restrict her fluids even further to 800ml/ day. * HTN- blood pressure is better today * Hypothyroidism- clinically stable * Continue PT/OT and Speech Therapy * She is stable for transfer out of the ICU
[2019-10-26] MEDS: cefTRIAXone\\ROCEPHIN 1 GM in Sodium Chloride 0.9% 100 ML IVPB SCH (12:20)
[2019-10-26] MEDS: hydrALAZINE 20 MG/ML VIAL SLOW IVP PRN (15:27)
[2019-10-26 17:17] LABS: Sodium 133 mmol/L (136-145)
[2019-10-26] MEDS: Famotidine/PF 20 mg/2ml Vial SLOW IVP SCH (20:36)
[2019-10-26] MEDS: ALPRAZolam 0.25 MG TAB PO SCH (20:36)
[2019-10-26] MEDS: Atorvastatin Calcium 10 MG TAB PO SCH (20:36)
[2019-10-27 04:18] LABS: Anion Gap 13 mmol/L (10-20); BUN (Urea Nitrogen) 22 mg/dL (9.8-20.1); Calc. Creatinine Clearance 50 mL/min (70-130); Calcium 9.6 mg/dL (7.8-10.44); Carbon Dioxide 25 mmol/L (23-31); Chloride 100 mmol/L (98-107); Estimated GFR-MDRD 72; Glucose 107 mg/dL (83-110); Potassium 3.5 mmol/L (3.5-5.1); Sodium 134 mmol/L (136-145)
[2019-10-27] MEDS: Levothyroxine Sodium 88 MCG TAB PO SCH (05:16)
[2019-10-27] MEDS: Sodium Chloride 1 GM TAB PO SCH ×3 (08:21→20:46)
[2019-10-27] MEDS: Metoprolol Tartrate 25 MG TAB PO SCH (08:21)
[2019-10-27] MEDS: Cyanocobalamin (Vitamin B-12) 1,000 MCG TAB PO SCH (08:23)
[2019-10-27] MEDS: Amlodipine 5 MG TAB PO SCH (08:23)
--- NOTE | 2019-10-27 09:07 | PRG ---
DATE OF SERVICE: 10/27/2019 SUBJECTIVE: The patient was seen and examined at the bedside. We had planned to transfer the patient to the Stroke Unit yesterday. However, she had some intermittent confusion. Therefore, we monitored her another night in the ICU. Her confusion appears to wax and wane and this morning, she is sitting up, she is comfortable, and there are no complaints. Her sodium is 134 today, so this appears to be improving as well. OBJECTIVE: GENERAL: This morning, the patient is sitting up comfortably. She is eating some breakfast. She is oriented to person and her birthday. She is not able to tell me the city. HEENT: Her pupils are equal and reactive. EXTREMITIES: She has free active range of all extremities and is moving without difficulty. The patient does have some intermittent confusion that waxes and wanes, but she has been appropriate and stable for some time now. At this point, I feel that she is appropriate for transfer to the Stroke Unit. Job ID: [id number]
--- NOTE | 2019-10-27 13:35 | PDOC.HOSPP ---
- Subjective Encounter Date: 10/27/19 Encounter Time: 10:40 Subjective: awake, responds well to verbal stimuli daughter at bedside - Objective Vital Signs & Weight: Vital Signs (12 hours) Temp Pulse Pulse BP BP Pulse Ox Pulse Ox 10/27/19 08:56 100 104 H 141/90 H 133/66 98 10/27/19 08:00 99 10/27/19 04:00 98.5 F Pulse Ox 10/27/19 08:56 98 10/27/19 08:00 10/27/19 04:00 Weight Admit Weight 136 lb 8 oz Weight 132 lb 11.492 oz Most Recent Monitor Data Heart Rate from ECG 96 NIBP 146/73 NIBP BP-Mean 97 Respiration from ECG 12 SpO2 97 I&O: 10/26/19 10/27/19 10/28/19 06:59 06:59 06:59 Intake Total 1100 560 100 Output Total 900 Balance 200 560 100 Result Diagrams: 10/24/19 05:17 10/27/19 03:05 Hospitalist ROS - Medication Medications: Active Medications Generic Name Dose Route Start Last Admin Trade Name Freq PRN Reason Stop Dose Admin Acetaminophen 650 mg 10/20/19 18:06 10/22/19 11:58 Tylenol [place] 650 mg Q6H PRN Administration Headache/Fever or Pain Acetaminophen 650 mg 10/23/19 05:09 10/24/19 09:42 Tylenol PO 650 mg Q4H PRN Administration Headache/Fever or Mild Pain Acetaminophen 650 mg 10/23/19 05:09 10/25/19 22:06 Tylenol Elixir PO 650 mg Q4H PRN Administration pain/fever Alprazolam 0.125 mg 10/20/19 21:00 10/26/19 20:36 Xanax PO 0.125 mg HS AARON Administration Amlodipine Besylate 5 mg 10/25/19 09:00 10/27/19 08:23 Norvasc PO 5 mg DAILY AARON Administration Atorvastatin Calcium 10 mg 10/20/19 21:00 10/26/19 20:36 Lipitor PO 10 mg HS AARON Administration Cholecalciferol 2,000 units 10/21/19 09:00 10/27/19 08:20 Vitamin D3 PO 2,000 units DAILY AARON Administration Cyanocobalamin 2,000 mcg 10/21/19 09:00 10/27/19 08:23 Vitamin B-12 PO 2,000 mcg DAILY AARON Administration Famotidine 20 mg 10/21/19 21:00 10/26/19 20:36 Pepcid SLOW IVP 20 mg QPM AARON Administration Hydralazine HCl 5 mg 10/23/19 14:20 10/26/19 15:27 Apresoline SLOW IVP 5 mg Q15MIN PRN Administration SBP >145 Ceftriaxone Sodium 1 gm/ 100 mls @ 200 mls/hr 10/22/19 13:00 10/26/19 12:20 Sodium Chloride IVPB 100 mls Q24HR AARON Administration Labetalol HCl 10 mg 10/20/19 17:38 10/24/19 06:01 Normodyne SLOW IVP 2 ml Q2H PRN Administration SBP > 150 or DBP > 90 Levothyroxine Sodium 88 mcg 10/21/19 06:00 10/27/19 05:16 Synthroid PO 88 mcg 0600 AARON Administration Metoprolol Tartrate 6.25 mg 10/22/19 09:00 10/27/19 08:21 Lopressor PO 6.25 mg DAILY AARON Administration Morphine Sulfate 2 mg 10/22/19 12:43 10/22/19 15:19 Morphine SLOW IVP 2 mg Q2H PRN Administration PAIN 4-10 Ondansetron HCl 4 mg 10/20/19 17:38 10/24/19 18:05 Zofran IVP 4 mg Q6H PRN Administration Nausea/Vomiting Pantoprazole Sodium 40 mg 10/21/19 09:00 10/27/19 08:23 Protonix PO 40 mg DAILY AARON Administration Sodium Chloride 3 gm 10/26/19 09:00 10/27/19 08:21 Sodium Chloride PO 3 gm TID AARON Administration - Exam General Appearance: awake alert Eye: PERRL, anicteric sclera ENT: no oropharyngeal lesions, dry oral mucosa Neck: supple, no JVD Heart: RRR, no murmur Respiratory: no wheezes, no rales Gastrointestinal: soft, non-tender, non-distended, normal bowel sounds Extremities: no cyanosis, no edema Neurological: cranial nerve grossly intact, no focal deficits Hosp A/P (1) Intraventricular hemorrhage Code(s): I61.5 - NONTRAUMATIC INTRACEREBRAL HEMORRHAGE, INTRAVENTRICULAR Status: Acute (2) Hypertension Code(s): I10 - ESSENTIAL (PRIMARY) HYPERTENSION Status: Chronic Qualifiers: Hypertension type: essential hypertension Qualified Code(s): I10 - Essential (primary) hypertension (3) Hypothyroidism Code(s): E03.9 - HYPOTHYROIDISM, UNSPECIFIED Status: Chronic (4) Physical deconditioning Code(s): R53.81 - OTHER MALAISE Status: Acute (5) Metabolic encephalopathy Code(s): G93.41 - METABOLIC ENCEPHALOPATHY Status: Acute (6) Hyponatremia Code(s): E87.1 - HYPO-OSMOLALITY AND HYPONATREMIA Status: Acute - Plan hemo/neurostable is clinically very dry, suggest iv fluids and relax on her fluid restriction d/w daughter at bedside bleed likely from htn induced mri did not reveal any mass continue norvasc, lopressor, lipitor, synthroid and protonix may dc ceftriaxone has been accepted to rehab, may dc in am if stable is awaiting stroke unit bed
[2019-10-27] MEDS: cefTRIAXone\\ROCEPHIN 1 GM in Sodium Chloride 0.9% 100 ML IVPB SCH (14:12)
[2019-10-27] MEDS: hydrALAZINE 20 MG/ML VIAL SLOW IVP PRN ×3 (15:15→22:42)
[2019-10-27] MEDS: ALPRAZolam 0.25 MG TAB PO SCH (20:45)
[2019-10-27] MEDS: Atorvastatin Calcium 10 MG TAB PO SCH (20:45)
[2019-10-27] MEDS: Famotidine/PF 20 mg/2ml Vial SLOW IVP SCH (20:46)
[2019-10-27] MEDS: Labetalol HCl 100 MG/20 ML VIAL SLOW IVP PRN (20:47)
[2019-10-28] MEDS: Levothyroxine Sodium 88 MCG TAB PO SCH (05:02)
[2019-10-28] MEDS: hydrALAZINE 20 MG/ML VIAL SLOW IVP PRN (05:02)
[2019-10-28 05:26] LABS: Anion Gap 13 mmol/L (10-20); BUN (Urea Nitrogen) 19 mg/dL (9.8-20.1); Calc. Creatinine Clearance 61 mL/min (70-130); Calcium 9.5 mg/dL (7.8-10.44); Carbon Dioxide 25 mmol/L (23-31); Chloride 100 mmol/L (98-107); Estimated GFR-MDRD 90; Glucose 105 mg/dL (83-110); Potassium 3.2 mmol/L (3.5-5.1); Sodium 135 mmol/L (136-145)
[2019-10-28 07:49] LABS: #Basophils 0.1 thou/uL (0.0-0.2); #Eosinphils 0.2 thou/uL (0.0-0.7); #Lymphocytes 2.3 thou/uL (1.20-3.40); #Monocytes 1.3 thou/uL (0.11-0.59); #Neutrophils 6.1 thou/uL (1.40-6.50); %Basophils 0.7 % (0.0-1.0); %Eosinophils 2.4 % (0.0-10.0); %Lymphocytes 22.7 % (21.0-51.0); %Neutrophils 61.1 % (42.0-75.0); Hemoglobin 12.6 g/dL (12.0-16.0); Mean Corpuscular HGB CONC 37.5 g/dL (32.0-36.0); Mean Corpuscular Hemoglobin 35.1 pg (27.0-31.0); Mean Corpuscular Volume 93.8 fL (78.0-98.0); Mean Platelet Volume 8.2 fL (7.4-10.4); Platelet Count 280 thou/uL (130-400); RBC Distribution Width 11.7 % (11.5-14.5); Red Blood Cell (RBC) Count 3.58 mill/uL (4.20-5.40); White Blood Cell (WBC) Count 9.9 thou/uL (4.8-10.8)
[2019-10-28] MEDS: Potassium Chloride 20 MEQ TAB PO SCH ×2 (08:40→16:39)
[2019-10-28] MEDS: Cyanocobalamin (Vitamin B-12) 1,000 MCG TAB PO SCH (08:40)
[2019-10-28] MEDS: Metoprolol Tartrate 25 MG TAB PO SCH ×2 (08:40→20:59)
[2019-10-28] MEDS: Amlodipine 5 MG TAB PO SCH (08:42)
[2019-10-28] MEDS: Sodium Chloride 1 GM TAB PO SCH ×2 (08:42→16:39)
--- NOTE | 2019-10-28 11:28 | PDOC.HOSPP ---
- Subjective Encounter Date: 10/28/19 Encounter Time: 10:15 Subjective: awake, not in distress responds well to verbal stimuli is not eating much daughter at bedside - Objective Vital Signs & Weight: Vital Signs (12 hours) Temp Pulse Resp BP BP Pulse Ox 10/28/19 07:29 98.5 F 80 13 130/63 95 10/28/19 06:06 143/63 H 10/28/19 05:02 78 10/28/19 04:24 98.7 F 78 14 170/77 H 98 Weight Admit Weight 136 lb 8 oz Weight 135 lb 11.2 oz Most Recent Monitor Data Heart Rate from ECG 97 NIBP 157/80 NIBP BP-Mean 105 Respiration from ECG 16 SpO2 97 I&O: 10/27/19 10/28/19 10/29/19 06:59 06:59 06:59 Intake Total 560 200 Balance 560 200 Result Diagrams: 10/28/19 07:13 10/28/19 05:04 Hospitalist ROS - Medication Medications: Active Medications Generic Name Dose Route Start Last Admin Trade Name Freq PRN Reason Stop Dose Admin Acetaminophen 650 mg 10/20/19 18:06 10/22/19 11:58 Tylenol [place] 650 mg Q6H PRN Administration Headache/Fever or Pain Acetaminophen 650 mg 10/23/19 05:09 10/24/19 09:42 Tylenol PO 650 mg Q4H PRN Administration Headache/Fever or Mild Pain Acetaminophen 650 mg 10/23/19 05:09 10/25/19 22:06 Tylenol Elixir PO 650 mg Q4H PRN Administration pain/fever Alprazolam 0.125 mg 10/20/19 21:00 10/27/19 20:45 Xanax PO 0.125 mg HS AARON Administration Amlodipine Besylate 5 mg 10/25/19 09:00 10/28/19 08:42 Norvasc PO 5 mg DAILY AARON Administration Atorvastatin Calcium 10 mg 10/20/19 21:00 10/27/19 20:45 Lipitor PO 10 mg HS AARON Administration Cholecalciferol 2,000 units 10/21/19 09:00 10/28/19 08:40 Vitamin D3 PO 2,000 units DAILY AARON Administration Cyanocobalamin 2,000 mcg 10/21/19 09:00 10/28/19 08:40 Vitamin B-12 PO 2,000 mcg DAILY AARON Administration Famotidine 20 mg 10/21/19 21:00 10/27/19 20:46 Pepcid SLOW IVP 20 mg QPM AARON Administration Hydralazine HCl 5 mg 10/23/19 14:20 10/28/19 05:02 Apresoline SLOW IVP 5 mg Q15MIN PRN Administration SBP >145 Ceftriaxone Sodium 1 gm/ 100 mls @ 200 mls/hr 10/22/19 13:00 10/27/19 14:12 Sodium Chloride IVPB 100 mls Q24HR AARON Administration Labetalol HCl 10 mg 10/20/19 17:38 10/27/19 20:47 Normodyne SLOW IVP 2 ml Q2H PRN Administration SBP > 150 or DBP > 90 Levothyroxine Sodium 88 mcg 10/21/19 06:00 10/28/19 05:02 Synthroid PO 88 mcg 0600 AARON Administration Metoprolol Tartrate 6.25 mg 10/22/19 09:00 10/28/19 08:40 Lopressor PO 6.25 mg DAILY AARON Administration Morphine Sulfate 2 mg 10/22/19 12:43 10/22/19 15:19 Morphine SLOW IVP 2 mg Q2H PRN Administration PAIN 4-10 Ondansetron HCl 4 mg 10/20/19 17:38 10/24/19 18:05 Zofran IVP 4 mg Q6H PRN Administration Nausea/Vomiting Pantoprazole Sodium 40 mg 10/21/19 09:00 10/28/19 08:42 Protonix PO 40 mg DAILY AARON Administration Potassium Chloride 40 meq 10/28/19 08:00 10/28/19 08:40 K-Dur PO 10/29/19 08:01 40 meq BID-WM AARON Administration Sodium Chloride 3 gm 10/26/19 09:00 10/28/19 08:42 Sodium Chloride PO 3 gm TID AARON Administration - Exam General Appearance: awake alert Eye: PERRL, anicteric sclera ENT: no oropharyngeal lesions, moist mucosa Neck: supple, no JVD Heart: RRR, no murmur Respiratory: no wheezes, no rales Gastrointestinal: soft, non-tender, non-distended, normal bowel sounds Extremities: no cyanosis, no edema Neurological: cranial nerve grossly intact, no new deficit Psychiatric: A&O x 3 Hosp A/P (1) Intraventricular hemorrhage Code(s): I61.5 - NONTRAUMATIC INTRACEREBRAL HEMORRHAGE, INTRAVENTRICULAR Status: Acute (2) Hypertension Code(s): I10 - ESSENTIAL (PRIMARY) HYPERTENSION Status: Chronic Qualifiers: Hypertension type: essential hypertension Qualified Code(s): I10 - Essential (primary) hypertension (3) Hypothyroidism Code(s): E03.9 - HYPOTHYROIDISM, UNSPECIFIED Status: Chronic (4) Physical deconditioning Code(s): R53.81 - OTHER MALAISE Status: Acute (5) Metabolic encephalopathy Code(s): G93.41 - METABOLIC ENCEPHALOPATHY Status: Acute (6) Hyponatremia Code(s): E87.1 - HYPO-OSMOLALITY AND HYPONATREMIA Status: Acute - Plan hemo/neurostable sodium this am is 135, is on 1200ml/day fluid restriction d/w daughter at bedside bleed likely from htn induced mri did not reveal any mass continue norvasc, lopressor, lipitor, synthroid and protonix may dc ceftriaxone has been accepted to rehab, may dc anytime if bed is available encourage po intake including ensure 1can tid along with mighty shakes
[2019-10-28] MEDS: cefTRIAXone\\ROCEPHIN 1 GM in Sodium Chloride 0.9% 100 ML IVPB SCH (12:43)
[2019-10-28] MEDS: ALPRAZolam 0.25 MG TAB PO SCH (20:57)
[2019-10-28] MEDS: Atorvastatin Calcium 10 MG TAB PO SCH (20:58)
[2019-10-28] MEDS: Famotidine/PF 20 mg/2ml Vial SLOW IVP SCH (20:59)
[2019-10-29] MEDS: hydrALAZINE 20 MG/ML VIAL SLOW IVP PRN ×3 (01:43→05:56)
[2019-10-29 05:26] LABS: Anion Gap 12 mmol/L (10-20); BUN (Urea Nitrogen) 20 mg/dL (9.8-20.1); Calc. Creatinine Clearance 56 mL/min (70-130); Carbon Dioxide 27 mmol/L (23-31); Chloride 98 mmol/L (98-107); Estimated GFR-MDRD 79; Glucose 109 mg/dL (83-110); Potassium 3.7 mmol/L (3.5-5.1); Sodium 133 mmol/L (136-145)
[2019-10-29] MEDS: Levothyroxine Sodium 88 MCG TAB PO SCH ×2 (06:00→06:03)
[2019-10-29] MEDS: Cyanocobalamin (Vitamin B-12) 1,000 MCG TAB PO SCH (09:11)
[2019-10-29] MEDS: Amlodipine 10 MG TAB PO SCH (09:12)
[2019-10-29] MEDS: Metoprolol Tartrate 25 MG TAB PO SCH ×2 (09:12→20:28)
[2019-10-29] MEDS: Potassium Chloride 20 MEQ TAB PO SCH (09:12)
--- NOTE | 2019-10-29 12:06 | PDOC.HOSPP ---
- Subjective Encounter Date: 10/29/19 Encounter Time: 10:00 Subjective: more lethargic this am, drinking little of ensure cans is moving all extremities but weak, voice is husky and soft - Objective Vital Signs & Weight: Vital Signs (12 hours) Temp Pulse Resp BP BP BP Pulse Ox 10/29/19 11:42 98.2 F 80 20 152/73 H 98 10/29/19 08:02 98.4 F 83 20 158/77 H 98 10/29/19 05:56 86 165/76 H 10/29/19 04:49 88 165/81 H 10/29/19 04:46 99.1 F 90 16 165/81 H 95 10/29/19 02:36 145/60 H 10/29/19 01:43 82 174/76 H 10/29/19 00:33 99.4 F 82 16 153/73 H 93 L Weight Admit Weight 136 lb 8 oz Weight 134 lb Most Recent Monitor Data Heart Rate from ECG 97 NIBP 157/80 NIBP BP-Mean 105 Respiration from ECG 16 SpO2 97 I&O: 10/28/19 10/29/19 10/30/19 06:59 06:59 06:59 Intake Total 200 378 Balance 200 378 Result Diagrams: 10/28/19 07:13 10/29/19 04:49 Hospitalist ROS - Medication Medications: Active Medications Generic Name Dose Route Start Last Admin Trade Name Freq PRN Reason Stop Dose Admin Acetaminophen 650 mg 10/20/19 18:06 10/22/19 11:58 Tylenol TN 650 mg Q6H PRN Administration Headache/Fever or Pain Acetaminophen 650 mg 10/23/19 05:09 10/24/19 09:42 Tylenol PO 650 mg Q4H PRN Administration Headache/Fever or Mild Pain Acetaminophen 650 mg 10/23/19 05:09 10/25/19 22:06 Tylenol Elixir PO 650 mg Q4H PRN Administration pain/fever Alprazolam 0.125 mg 10/20/19 21:00 10/28/19 20:57 Xanax PO 0.125 mg HS AARON Administration Amlodipine Besylate 10 mg 10/29/19 09:00 10/29/19 09:12 Norvasc PO 10 mg DAILY AARON Administration Atorvastatin Calcium 10 mg 10/20/19 21:00 03/15/20 20:58 Lipitor PO 10 mg HS AARON Administration Cholecalciferol 2,000 units 10/21/19 09:00 10/29/19 09:11 Vitamin D3 PO 2,000 units DAILY AARON Administration Cyanocobalamin 2,000 mcg 10/21/19 09:00 10/29/19 09:11 Vitamin B-12 PO 2,000 mcg DAILY AARON Administration Famotidine 20 mg 10/21/19 21:00 10/28/19 20:59 Pepcid SLOW IVP 20 mg QPM AARON Administration Hydralazine HCl 5 mg 10/23/19 14:20 10/29/19 05:56 Apresoline SLOW IVP 5 mg Q15MIN PRN Administration SBP >145 Labetalol HCl 10 mg 10/20/19 17:38 10/27/19 20:47 Normodyne SLOW IVP 2 ml Q2H PRN Administration SBP > 150 or DBP > 90 Levothyroxine Sodium 88 mcg 10/21/19 06:00 10/29/19 06:00 Synthroid PO 88 mcg 0600 AARON Administration Metoprolol Tartrate 25 mg 10/28/19 21:00 10/29/19 09:12 Lopressor PO 25 mg BID AARON Administration Morphine Sulfate 2 mg 10/22/19 12:43 10/22/19 15:19 Morphine SLOW IVP 2 mg Q2H PRN Administration PAIN 4-10 Ondansetron HCl 4 mg 10/20/19 17:38 10/24/19 18:05 Zofran IVP 4 mg Q6H PRN Administration Nausea/Vomiting Pantoprazole Sodium 40 mg 10/21/19 09:00 10/29/19 09:12 Protonix PO 40 mg DAILY AARON Administration - Exam General Appearance: ill appearing Eye: PERRL, anicteric sclera ENT: no oropharyngeal lesions, moist mucosa Neck: supple, no JVD Heart: RRR, no murmur Respiratory: no wheezes, no rales Gastrointestinal: soft, non-tender, non-distended, normal bowel sounds Extremities: no cyanosis, no edema Neurological: cranial nerve grossly intact, no focal deficits Hosp A/P (1) Intraventricular hemorrhage Code(s): I61.5 - NONTRAUMATIC INTRACEREBRAL HEMORRHAGE, INTRAVENTRICULAR Status: Acute (2) Hypertension Code(s): I10 - ESSENTIAL (PRIMARY) HYPERTENSION Status: Chronic Qualifiers: Hypertension type: essential hypertension Qualified Code(s): I10 - Essential (primary) hypertension (3) Hypothyroidism Code(s): E03.9 - HYPOTHYROIDISM, UNSPECIFIED Status: Chronic (4) Physical deconditioning Code(s): R53.81 - OTHER MALAISE Status: Acute (5) Metabolic encephalopathy Code(s): G93.41 - METABOLIC ENCEPHALOPATHY Status: Acute (6) Hyponatremia Code(s): E87.1 - HYPO-OSMOLALITY AND HYPONATREMIA Status: Acute - Plan is more lethargic this am and needs 2 or more prompts to follow verbal stimuli, is very weak as well sodium this am is 133, is on 1200ml/day fluid restriction repeat CT brain bleed likely from htn induced mri did not reveal any mass continue norvasc, lopressor, lipitor, synthroid and protonix likely dc plan to rehab when she is more awake encourage po intake including ensure 1can tid along with mighty shakes
--- NOTE | 2019-10-29 12:08 | CT ---
CT BRAIN WITHOUT CONTRAST: Date: 10/29/2019 INDICATION: Follow-up intracranial hemorrhage. COMPARISON: Prior exam dated 10/24/2019. FINDINGS: The intraventricular hemorrhage seen predominantly within the right lateral ventricle is slightly les s prominent. There is some residual hemorrhage present within the body, atrium, and posterior horn of the right lateral ventricle. Small amount of layered hemorrhage is seen within the posterior horn of the left lateral ventricle. Mild hydrocephalus is stable-appearing. Basilar cisterns are stable appe aring. No midline shift is evident. Diffuse atrophy with moderate to severe chronic small vessel whit e matter ischemic change is similar appearing. No acute infarct is evident. Skull is intact. Visualiz ed paranasal sinuses and mastoid air cells are clear. IMPRESSION: Reduction in the extent of the intraventricular hemorrhage with stable mild hydrocephalus. POS: BH
[2019-10-29 13:38] VITALS: BMI 22.3
[2019-10-29] MEDS ORDERED: Sodium Chloride 0.45% 1,000 ML IV SCH (16:45)
[2019-10-29] MEDS: Acetaminophen 650 MG/20.3 ML UDCUP PO PRN (17:55)
[2019-10-29] MEDS: Famotidine/PF 20 mg/2ml Vial SLOW IVP SCH (20:28)
[2019-10-29] MEDS: Atorvastatin Calcium 10 MG TAB PO SCH (20:28)
[2019-10-30] MEDS: hydrALAZINE 20 MG/ML VIAL SLOW IVP PRN (00:05)
[2019-10-30] MEDS: Levothyroxine Sodium 88 MCG TAB PO SCH (06:50)
[2019-10-30 07:44] LABS: #Basophils 0.1 thou/uL (0.0-0.2); #Eosinphils 0.3 thou/uL (0.0-0.7); #Lymphocytes 2.6 thou/uL (1.20-3.40); #Monocytes 1.2 thou/uL (0.11-0.59); #Neutrophils 5.8 thou/uL (1.40-6.50); %Basophils 0.8 % (0.0-1.0); %Eosinophils 2.8 % (0.0-10.0); %Lymphocytes 26.3 % (21.0-51.0); %Monocytes 11.8 % (0.0-10.0); %Neutrophils 58.3 % (42.0-75.0); Hemoglobin 12.5 g/dL (12.0-16.0); Mean Corpuscular HGB CONC 33.7 g/dL (32.0-36.0); Mean Corpuscular Hemoglobin 31.3 pg (27.0-31.0); Mean Corpuscular Volume 92.9 fL (78.0-98.0); Mean Platelet Volume 7.2 fL (7.4-10.4); Platelet Count 334 thou/uL (130-400); RBC Distribution Width 11.7 % (11.5-14.5); Red Blood Cell (RBC) Count 3.99 mill/uL (4.20-5.40); White Blood Cell (WBC) Count 9.9 thou/uL (4.8-10.8)
[2019-10-30 08:02] LABS: ALT (SGPT) 14 U/L (8-55); AST (SGOT) 18 U/L (5-34); Albumin 3.8 g/dL (3.4-4.8); Alkaline Phosphatase 45 U/L (40-110); Anion Gap 12 mmol/L (10-20); BUN (Urea Nitrogen) 22 mg/dL (9.8-20.1); Bilirubin, Total 0.9 mg/dL (0.2-1.2); Calc. Creatinine Clearance 54 mL/min (70-130); Calcium 9.4 mg/dL (7.8-10.44); Carbon Dioxide 24 mmol/L (23-31); Chloride 94 mmol/L (98-107); Estimated GFR-MDRD 78; Globulin 2.8 g/dL (2.4-3.5); Glucose 102 mg/dL (83-110); Potassium 3.6 mmol/L (3.5-5.1); Protein, Total 6.6 g/dL (6.0-8.3); Sodium 126 mmol/L (136-145)
[2019-10-30] MEDS: Cyanocobalamin (Vitamin B-12) 1,000 MCG TAB PO SCH (09:42)
[2019-10-30] MEDS: Metoprolol Tartrate 25 MG TAB PO SCH (09:42)
[2019-10-30] MEDS: Amlodipine 10 MG TAB PO SCH (09:42)
[2019-10-30 11:14] VITALS: TEMP 98.8
--- NOTE | 2019-10-30 11:25 | PDOC.HOSPP ---
- Subjective Encounter Date: 10/30/19 Encounter Time: 10:00 Subjective: lethargic, follows verbal stimuli but very weak daughter and son at bedside - Objective Vital Signs & Weight: Vital Signs (12 hours) Temp Pulse Resp BP Pulse Ox 10/30/19 11:11 98.8 F 75 20 152/72 H 94 L 10/30/19 09:42 83 10/30/19 07:44 98.5 F 91 16 144/67 H 94 L 10/30/19 03:30 97.9 F 80 13 135/85 98 10/30/19 00:05 73 10/29/19 23:32 98.1 F 73 14 151/77 H 99 Weight Admit Weight 136 lb 8 oz Weight 132 lb Most Recent Monitor Data Heart Rate from ECG 97 NIBP 157/80 NIBP BP-Mean 105 Respiration from ECG 16 SpO2 97 I&O: 10/29/19 10/30/19 10/31/19 06:59 06:59 06:59 Intake Total 378 119 75 Balance 378 119 75 Result Diagrams: 10/30/19 07:34 10/30/19 07:34 Hospitalist ROS - Medication Medications: Active Medications Generic Name Dose Route Start Last Admin Trade Name Freq PRN Reason Stop Dose Admin Acetaminophen 650 mg 10/20/19 18:06 10/22/19 11:58 Tylenol HI 650 mg Q6H PRN Administration Headache/Fever or Pain Acetaminophen 650 mg 10/23/19 05:09 10/24/19 09:42 Tylenol PO 650 mg Q4H PRN Administration Headache/Fever or Mild Pain Acetaminophen 650 mg 10/23/19 05:09 10/29/19 17:55 Tylenol Elixir PO 650 mg Q4H PRN Administration pain/fever Amlodipine Besylate 10 mg 10/29/19 09:00 10/30/19 09:42 Norvasc PO 10 mg DAILY AARON Administration Atorvastatin Calcium 10 mg 10/20/19 21:00 10/29/19 20:28 Lipitor PO 10 mg HS AARON Administration Cholecalciferol 2,000 units 10/21/19 09:00 10/30/19 09:41 Vitamin D3 PO 2,000 units DAILY AARON Administration Cyanocobalamin 2,000 mcg 10/21/19 09:00 10/30/19 09:42 Vitamin B-12 PO 2,000 mcg DAILY AARON Administration Famotidine 20 mg 10/21/19 21:00 10/29/19 20:28 Pepcid SLOW IVP 20 mg QPM AARON Administration Hydralazine HCl 5 mg 10/23/19 14:20 10/30/19 00:05 Apresoline SLOW IVP 5 mg Q15MIN PRN Administration SBP >145 Sodium Chloride 1,000 mls @ 50 mls/hr 10/29/19 16:45 10/29/19 16:52 1/2 Normal Saline IV 10/30/19 12:44 1,000 mls .Q20H AARON Administration Labetalol HCl 10 mg 10/20/19 17:38 10/27/19 20:47 Normodyne SLOW IVP 2 ml Q2H PRN Administration SBP > 150 or DBP > 90 Levothyroxine Sodium 88 mcg 10/21/19 06:00 10/30/19 06:50 Synthroid PO 88 mcg 0600 AARON Administration Metoprolol Tartrate 25 mg 10/28/19 21:00 10/30/19 09:42 Lopressor PO 25 mg BID AARON Administration Morphine Sulfate 2 mg 10/22/19 12:43 10/22/19 15:19 Morphine SLOW IVP 2 mg Q2H PRN Administration PAIN 4-10 Ondansetron HCl 4 mg 10/20/19 17:38 10/24/19 18:05 Zofran IVP 4 mg Q6H PRN Administration Nausea/Vomiting Pantoprazole Sodium 40 mg 10/21/19 09:00 10/30/19 09:43 Protonix PO 40 mg DAILY AARON Administration Sodium Chloride 10 ml 10/20/19 17:38 10/30/19 09:43 Flush - Normal Saline IVF 10 ml PRN PRN Administration Saline Flush - Exam General Appearance: ill appearing Eye: PERRL, anicteric sclera ENT: no oropharyngeal lesions, dry oral mucosa Neck: supple, no JVD Heart: RRR, no murmur Respiratory: no wheezes, no rales Gastrointestinal: soft, non-tender, non-distended, normal bowel sounds Extremities: no cyanosis, no edema Neurological: cranial nerve grossly intact, no focal deficits Hosp A/P (1) Intraventricular hemorrhage Code(s): I61.5 - NONTRAUMATIC INTRACEREBRAL HEMORRHAGE, INTRAVENTRICULAR Status: Acute (2) Hypertension Code(s): I10 - ESSENTIAL (PRIMARY) HYPERTENSION Status: Chronic Qualifiers: Hypertension type: essential hypertension Qualified Code(s): I10 - Essential (primary) hypertension (3) Hypothyroidism Code(s): E03.9 - HYPOTHYROIDISM, UNSPECIFIED Status: Chronic (4) Physical deconditioning Code(s): R53.81 - OTHER MALAISE Status: Acute (5) Metabolic encephalopathy Code(s): G93.41 - METABOLIC ENCEPHALOPATHY Status: Acute (6) Hyponatremia Code(s): E87.1 - HYPO-OSMOLALITY AND HYPONATREMIA Status: Acute - Plan is more lethargic this am and needs 2 or more prompts to follow verbal stimuli, is very weak as well sodium is low but stable, is on 1200ml/day fluid restriction repeat CT brain yesterday results reviewed. bleed likely from htn induced mri did not reveal any mass continue norvasc, lopressor, lipitor, synthroid and protonix dc plan to rehab d/w son KARIN and daughter at bedside, they are aware of her current situation, they want to try rehab if she will perk up first then try palliative or hospice if she is doing poorly. encourage po intake including ensure 1can tid along with mighty shakes
[2019-10-30 13:07] VITALS: BP 129/76
--- NOTE | 2019-10-31 12:10 | DIS ---
DATE OF ADMISSION: 10/20/2019 DATE OF DISCHARGE: 10/30/2019 DISCHARGE DISPOSITION: Inpatient rehab. PRIMARY DISCHARGE DIAGNOSES: Intraventricular hemorrhage, severe deconditioning, hypertension, hypothyroidism, metabolic encephalopathy secondary to intraventricular hemorrhage, and hyponatremia secondary to syndrome of inappropriate antidiuretic hormone secretion. PROCEDURES DONE DURING HOSPITALIZATION: The patient has had CT brain without contrast on admission, which showed intraventricular hemorrhage. The patient has had serial CAT scans done, which are showing findings suggestive of decreasing amount of blood in the ventricles. MRI brain done showed intraventricular hematoma in the right lateral ventricle, third ventricle, and small amount in fourth ventricle. Cause of this hemorrhage was not evident on the MRI. There was mild low-grade noncommunicating obstructive hydrocephalus noted on the MRI. Urine culture obtained on the , was contaminated with mixed alla. H and H 12 and 37, platelet count 334. On the day of discharge, MCV is 92. PT/INR and PTT were within normal limits on admission. Discharge BUN and creatinine were 22 and 0.7. Discharge sodium levels were 126. Serum bicarb 24. Albumin is 3.8. BNP was 35. TSH 3.4. INPATIENT CONSULTS: 1. Dr. Hutchinson for Neurosurgery. 2. Dr. López for Nephrology. DISCHARGE MEDICATIONS: 1. Albuterol inhaler q.6 hourly p.r.n. 2. Alprazolam 0.125 mg p.o. at bedtime. 3. Lipitor 10 mg p.o. at bedtime. 4. Vitamin D3 of 2000 units p.o. daily. 5. Vitamin B12 of 2000 mcg p.o. daily. 6. Vincent p.r.n. for pain. 7. Levothyroxine 88 mcg p.o. daily. 8. Omeprazole 20 mg p.o. daily. 9. Norvasc 10 mg p.o. daily. 10. Metoprolol 25 mg p.o. twice daily. ALLERGIES: NO KNOWN DRUG ALLERGIES. BRIEF COURSE DURING HOSPITALIZATION: The patient initially got admitted on the , with complaints of headache and confusion. She also had some cognitive slowness prior to arrival. In view of this history, she has had a CT brain done, which showed intraventricular hemorrhage. The patient was admitted to ICU and has had close monitoring. Likely, her intraventricular hemorrhage was due to uncontrolled hypertension. She was closely monitored in the ICU with serial CAT scans done, which have not revealed any progression of her intraventricular bleed. MRI done did not reveal any mass or other factors attributing to the hemorrhage. She has had waxing and waning of metabolic encephalopathy. The patient had hyponatremia, likely due to SIADH. She has not been eating much, but the last 36 hours, she has been consuming 1-1/2 to 2 cans of Ensure. Her condition was discussed with her son and daughter extensively at bedside prior to discharge. The family wanted to give her a chance to see if she would recuperate and do well at rehab. If not, they are planning to go into hospice at the long-term if she were to decline further at the rehab. At the time of discharge, the patient is lethargic and is eating 20% to 30% of her meals, but responds to verbal questions. She is severely deconditioned needing assistance to even sit. Despite all this, the patient has been accepted to inpatient rehab and will be shortly discharged there. Please see a [id number] documentation for the day of discharge on [facility]ian[facility]. A total of 35 minutes was spent on discharge plan. Job ID: [id number]
== END 2019-10-30 13:17 | DRG 64 ==
LOC: ERS 10:34 → CCU 11:55 → ERS 13:58 → 2SE 10-22 17:37 → CCU 10-23 16:58 → 2SE 10-27 15:54
PROVIDERS: ADMIT Neurological Surgery; ATTEND Neurological Surgery
DX: I61.5 Nontraumatic intracerebral hemorrhage, intraventricular (principal); G93.41 Metabolic encephalopathy; E22.2 Syndrome of inappropriate secretion of antidiuretic hormone; G91.8 Other hydrocephalus; N39.0 Urinary tract infection, site not specified; R53.81 Other malaise; E03.9 Hypothyroidism, unspecified; E78.5 Hyperlipidemia, unspecified; K21.9 Gastro-esophageal reflux disease without esophagitis; N18.3 Chronic kidney disease, stage 3 (moderate); I12.9 Hypertensive chronic kidney disease with stage 1 through stage 4 chronic kidney disease, or unspecified chronic kidney disease; E87.6 Hypokalemia; M19.90 Unspecified osteoarthritis, unspecified site; F41.9 Anxiety disorder, unspecified; E87.8 Other disorders of electrolyte and fluid balance, not elsewhere classified; D63.1 Anemia in chronic kidney disease; R29.810 Facial weakness; E83.42 Hypomagnesemia; E78.00 Pure hypercholesterolemia, unspecified; Z90.710 Acquired absence of both cervix and uterus; Z90.49 Acquired absence of other specified parts of digestive tract; Z87.891 Personal history of nicotine dependence
CPT/HCPCS: 36415; 36416; 70450; 70553; 71045; 80048; 80053; 81003; 81015; 82550; 82553; 83690; 83735; 83880; 83930; 83935; 84300; 84439; 84443; 84481; 84484; 85025; 85610; 85730; 87086; 93005; 93010; 96365; 96366; A9579; J0360; J0696; J2270; J2405; J3475; J3480; J3490; J7050; S0028

== ENCOUNTER 2020-01-03 10:22 | Inpatient (IN) | payer BC, MEDICARE ==
[2020-01-03 10:55] LABS: #Basophils 0.1 thou/uL (0.0-0.2); #Eosinphils 0.1 thou/uL (0.0-0.7); #Lymphocytes 2.9 thou/uL (1.20-3.40); #Neutrophils 8.5 thou/uL (1.40-6.50); %Basophils 0.5 % (0.0-1.0); %Eosinophils 0.9 % (0.0-10.0); %Lymphocytes 22.9 % (21.0-51.0); %Monocytes 7.9 % (0.0-10.0); %Neutrophils 67.8 % (42.0-75.0); Hemoglobin 12.4 g/dL (12.0-16.0); Mean Corpuscular HGB CONC 33.7 g/dL (32.0-36.0); Mean Corpuscular Hemoglobin 30.9 pg (27.0-31.0); Mean Corpuscular Volume 91.7 fL (78.0-98.0); Mean Platelet Volume 7.3 fL (7.4-10.4); Platelet Count 360 thou/uL (130-400); RBC Distribution Width 12.7 % (11.5-14.5); White Blood Cell (WBC) Count 12.5 thou/uL (4.8-10.8)
--- NOTE | 2020-01-03 11:00 | RAD ---
EXAM: CHEST ONE VIEW HISTORY: Hypotension. COMPARISON: 10/21/2019 FINDINGS: The cardiac silhouette and pulmonary vasculature is within normal limits. The lungs are clear. Osteop enia is present. Chest is stable compared to prior exam. IMPRESSION: No acute cardiopulmonary process.
[2020-01-03 11:17] LABS: ALT (SGPT) Less than 7 U/L (8-55); AST (SGOT) 12 U/L (5-34); Albumin 3.5 g/dL (3.4-4.8); Alkaline Phosphatase 73 U/L (40-110); Anion Gap 15 mmol/L (10-20); BUN (Urea Nitrogen) 11 mg/dL (9.8-20.1); Bilirubin, Total 0.6 mg/dL (0.2-1.2); CK (CPK) 24 U/L (29-168); Calc. Creatinine Clearance 0 mL/min (70-130); Calcium 8.8 mg/dL (7.8-10.44); Carbon Dioxide 24 mmol/L (23-31); Chloride 96 mmol/L (98-107); Estimated GFR-MDRD 50; Globulin 3.1 g/dL (2.4-3.5); Glucose 107 mg/dL (83-110); Magnesium 1.4 mg/dL (1.6-2.6); Protein, Total 6.6 g/dL (6.0-8.3); Sodium 132 mmol/L (136-145)
[2020-01-03 11:24] LABS: Potassium 2.6 mmol/L (3.5-5.1)
[2020-01-03 11:35] LABS: CKMB 0.6 ng/mL (0-6.6)
[2020-01-03 11:44] LABS: Bacteria/HPF 4+ HPF (None Seen); Bilirubin Negative (Negative); Blood, Urine Trace (Negative); Clarity Turbid (Clear); Glucose, Urine (Dipstick) Normal (Negative); Leukocyte 500 Leu/uL (Negative); Nitrite Negative (Negative); Protein, Urine (Dipstick) 30 mg/dL (Neg-Trace); RBC/HPF None Seen HPF (0-3); Squamous Epithelial None Seen HPF (0-3); Urobilinogen Normal mg/dL (Less than 2); WBC/HPF Greater than 50 HPF (0-3)
[2020-01-03] MEDS ORDERED: Magnesium 2 GM/50 ML BAG (IN WATER) ONE (11:45)
[2020-01-03] MEDS ORDERED: Cefepime 2 GM VIAL ONE (12:10)
[2020-01-03] MEDS ORDERED: Potassium Chloride 40 MEQ in Sodium Chloride 0.9% 250 ML 250 ML IVPB SCH (12:30)
--- NOTE | 2020-01-03 12:46 | PDOC.HHP ---
Hospitalist HPI - History of Present Illness History of Present Illness: Please refer to other H&P document from same day Hospitalist Results - Labs Result Diagrams: 01/03/20 10:45 01/03/20 15:10 Lab results: WBC 12.5 thou/uL (4.8-10.8) H 01/03/20 10:45 Hgb 12.4 g/dL (12.0-16.0) 01/03/20 10:45 Hct 36.7 % (36.0-47.0) 01/03/20 10:45 MCV 91.7 fL (78.0-98.0) 01/03/20 10:45 Plt Count 360 thou/uL (130-400) 01/03/20 10:45 Neutrophils % 67.8 % (42.0-75.0) 01/03/20 10:45 Sodium 132 mmol/L (136-145) L 01/03/20 10:45 Potassium 2.6 mmol/L (3.5-5.1) L* 01/03/20 10:45 Chloride 96 mmol/L (98-107) L 01/03/20 10:45 Carbon Dioxide 24 mmol/L (23-31) 01/03/20 10:45 BUN 11 mg/dL (9.8-20.1) 01/03/20 10:45 Creatinine 1.04 mg/dL (0.6-1.1) 01/03/20 10:45 Glucose 107 mg/dL (83-110) 01/03/20 10:45 Lactic Acid 2.2 mmol/L (0.5-2.2) 01/03/20 12:08 Calcium 8.8 mg/dL (7.8-10.44) 01/03/20 10:45 Total Bilirubin 0.6 mg/dL (0.2-1.2) 01/03/20 10:45 AST 12 U/L (5-34) 01/03/20 10:45 ALT Less than 7 U/L (8-55) L 01/03/20 10:45 Alkaline Phosphatase 73 U/L (40-110) 01/03/20 10:45 Creatine Kinase 24 U/L (29-168) L 01/03/20 10:45 CK-MB (CK-2) 0.6 ng/mL (0-6.6) 01/03/20 10:45 Troponin I 0.037 ng/mL (< 0.028) H 01/03/20 10:45 Serum Total Protein 6.6 g/dL (6.0-8.3) 01/03/20 10:45 Albumin 3.5 g/dL (3.4-4.8) 01/03/20 10:45 Urine Ketones Negative mg/dL (Negative) 01/03/20 11:20 Urine Blood Trace (Negative) A 01/03/20 11:20 Urine Nitrite Negative (Negative) 01/03/20 11:20 Ur Leukocyte Esterase 500 Sukhdev/uL (Negative) A 01/03/20 11:20 Urine RBC None Seen HPF (0-3) 01/03/20 11:20 Urine WBC Greater than 50 HPF (0-3) A 01/03/20 11:20 Ur Squamous Epith Cells None Seen HPF (0-3) 01/03/20 11:20 Urine Bacteria 4+ HPF (None Seen) A 01/03/20 11:20
[2020-01-03] MEDS ORDERED: Vancomycin 1 GM/200 ML BAG ONE (12:57)
[2020-01-03 14:04] LABS: Lactic Acid 2.1 mmol/L (0.5-2.2)
[2020-01-03 14:05] LABS: Troponin I 0.029 ng/mL (< 0.028)
[2020-01-03 14:31] VITALS: BMI 20.1
[2020-01-03] MEDS ORDERED: Ondansetron PF 4 MG/2 ML Vial IVP PRN (14:37)
[2020-01-03] MEDS ORDERED: Ondansetron ODT 4 MG TAB PO PRN (14:37)
[2020-01-03] MEDS ORDERED: Acetaminophen 325 MG TAB PO PRN (14:37)
[2020-01-03] MEDS ORDERED: HYDROcodone/Acetaminophen 5/325 mg Tablet PO PRN (14:37)
[2020-01-03] MEDS: cefTRIAXone\\ROCEPHIN 1 GM in Sodium Chloride 0.9% 100 ML IVPB SCH (14:58)
[2020-01-03 15:38] LABS: Lactic Acid 2.2 mmol/L (0.5-2.2)
[2020-01-03 15:42] LABS: Calcium 8.4 mg/dL (7.8-10.44); Magnesium 1.9 mg/dL (1.6-2.6); Phosphorus 2.3 mg/dL (2.3-4.7)
[2020-01-03 15:45] LABS: Potassium 2.7 mmol/L (3.5-5.1)
[2020-01-03] MEDS ORDERED: Magnesium 2 GM/50 ML 2 GM in Premix Bag 1 BAG IVPB SCH (16:15)
--- NOTE | 2020-01-03 17:49 | HP ---
HISTORY OF PRESENT ILLNESS: Ms. Lopez is an 84-year-old female with a medical history of recurrent UTIs, treated as outpatient, who presents for generalized weakness, burning on urination, and hypotension. The patient had multiple episodes of urinary tract infections in the past that were treated on an outpatient basis. Two days ago, she started having sudden onset generalized weakness and dizziness. She contacted her primary care physician and came to the office and was found to be hypotensive. Reportedly, systolic was in the 80s. The primary care physician sent her to the emergency room for further workup. On encounter, the patient is lying comfortably in bed and endorses burning on urination that she has had before and past episodes of urinary tract infections and generalized weakness that has improved since receiving fluids in the ED. Denies fever, chills, night sweats, dysuria, hematuria, recent catheterization or hospitalization, chest pain, palpitations, abdominal pain, diarrhea, chronic antibiotic usage for recurrent UTIs. ED COURSE: In the ED, the patient was found to be hypotensive and responded to fluids. Urinalysis was positive, so she was admitted to the telemetry floor due to severe hypokalemia. REVIEW OF SYSTEMS: Complete review of systems was carried out and was negative with the exception of that mentioned in the HPI. PAST MEDICAL HISTORY: Hypothyroidism, hyperlipidemia, hypertension, GERD, osteoarthritis, also had recent intraventricular hemorrhage that was monitored with imaging. Recurrent UTIs that were treated as an outpatient. PAST SURGICAL HISTORY: Back surgery in 2019, hysterectomy, and lap cholecystectomy in 2019. SOCIAL HISTORY: No smoking. No alcohol use. No recreational drug use. FAMILY HISTORY: Remarkable for breast and lung cancer. MEDICATIONS: Reconciled in EMR. ALLERGIES: NO KNOWN DRUG ALLERGIES. PHYSICAL EXAMINATION: VITAL SIGNS: Blood pressure 107/56, pulse 75, respiratory rate 18, temperature is 97.9, and saturating 99% on room air. GENERAL: No apparent distress. Alert and oriented x3. HEENT: Normocephalic, atraumatic. No oropharyngeal erythema. No neck or postauricular lymphadenopathy. PERRL. CARDIAC: Regular rate and rhythm. No murmurs, gallops, or rubs. LUNGS: Clear to auscultation bilaterally. No wheezing, rales, or rhonchi. ABDOMINAL EXAM: Nontender, nondistended. Normal bowel sounds. No guarding. EXTREMITIES: No edema. PSYCHIATRIC: Proper mood, proper affect. Alert and oriented x3. LABS AND IMAGING: Labs and imaging were reviewed. Chest x-ray showed no acute cardiopulmonary process. Urinalysis was significant for bacteria and pyuria. The patient was hypokalemic at 2.7 and hypomagnesemic at 1.4. ASSESSMENT AND PLAN: Ms. Lopez is an 84-year-old female with a medical history of recurrent urinary tract infections, treated as an outpatient, who presents with a complicated urinary tract infection. 1. Complicated urinary tract infection. a. The patient is hypotensive on presentation. Urinalysis positive. b. Endorses recurrent urinary tract infections in the past, however, does not recall treatment or identity of bacteria. c. Start ceftriaxone 1 g q.24 hours, pending urinary culture results. d. We will obtain pelvic ultrasound to assess for anatomical abnormalities considering recurrent urinary tract infections. 2. Hypertension. a. Concerning the patient presented with hypotension. We will hold antihypertensive. 3. Hypothyroidism. a. Restart the patient's levothyroxine. 4. Electrolyte imbalances. a. The patient endorses urinary frequency, which is the likely cause of her hypomagnesemia and hypokalemia. b. We will supplement potassium and magnesium. Follow electrolytes in the a.m. 5. Disposition, prophylaxis. 6. The patient is full code. 7. DVT prophylaxis, enoxaparin. 8. GI prophylaxis. No indication. 9. Estimated length of stay, 2 midnights. Job ID: [id number]
[2020-01-03 18:33] LABS: Troponin I 0.038 ng/mL (< 0.028)
[2020-01-03] MEDS ORDERED: Potassium Chloride 20 MEQ TAB PO SCH ×2 (19:30→23:15)
[2020-01-03] MEDS: Senokot S 8.6-50 MG TAB PO SCH (21:02)
[2020-01-03] MEDS: Aspirin 81 mg Enteric Coated Tablet PO SCH (21:02)
[2020-01-03] MEDS: Atorvastatin Calcium 10 MG TAB PO SCH (21:02)
[2020-01-03] MEDS: ALPRAZolam 0.25 MG TAB PO SCH (21:03)
[2020-01-03 21:40] LABS: Magnesium 2.4 mg/dL (1.6-2.6)
[2020-01-03 21:49] LABS: Potassium 2.9 mmol/L (3.5-5.1)
--- NOTE | 2020-01-04 00:17 | PDOC.EVN ---
Event Note - Event Note Event Note: Notified by RN, patient with low K+ and unable to tolerate IV replacement. It was significantly slowed down to 20 mLs/hr. 80 mEq KCl in 1,[address] Matias, however held as patient unable to tolerate and still completing initial replacement ordered. Therefore I ordered a one time dose of PO replacement (40 mEq KCl). Recheck for K+ scheduled for 19:00, time I was initially contacted. Given the patient had not completed replacement, we opted to retime to 21:00. PO replacement was not given until 21:00. Therefore repeat K+ of 2.9 likely did not reflect PO replacement given. Additional 40 mEq PO ordered, so as to complete original dose ordered by Dr. Matias and give in PO form rather than IV. Notified by RN, 2nd dose of PO replacement was cancelled by Dr. Matias this evening. I informed RN since it was cancelled, it would not be prudent of me to re-order therefore will leave for Dr. Matias to manage in the morning.
[2020-01-04 05:05] LABS: Anion Gap 10 mmol/L (10-20); BUN (Urea Nitrogen) 7 mg/dL (9.8-20.1); Calc. Creatinine Clearance 51 mL/min (70-130); Calcium 8.6 mg/dL (7.8-10.44); Carbon Dioxide 24 mmol/L (23-31); Chloride 102 mmol/L (98-107); Estimated GFR-MDRD 81; Glucose 86 mg/dL (83-110); Potassium 3.4 mmol/L (3.5-5.1); Sodium 133 mmol/L (136-145)
[2020-01-04] MEDS: Levothyroxine Sodium 88 MCG TAB PO SCH (05:25)
[2020-01-04 05:51] LABS: Hemoglobin 12.5 g/dL (12.0-16.0); Mean Corpuscular HGB CONC 31.6 g/dL (32.0-36.0); Mean Corpuscular Hemoglobin 29.4 pg (27.0-31.0); Mean Platelet Volume 7.9 fL (7.4-10.4); Platelet Count 309 thou/uL (130-400); RBC Distribution Width 12.9 % (11.5-14.5); Red Blood Cell (RBC) Count 4.24 mill/uL (4.20-5.40); White Blood Cell (WBC) Count 13.9 thou/uL (4.8-10.8)
[2020-01-04 06:07] LABS: #Basophils 0.1 thou/uL (0.0-0.2); #Eosinphils 0.2 thou/uL (0.0-0.7); #Lymphocytes 2.5 thou/uL (1.20-3.40); #Monocytes 1.7 thou/uL (0.11-0.59); #Neutrophils 9.4 thou/uL (1.40-6.50); %Basophils 0.5 % (0.0-1.0); %Eosinophils 1.2 % (0.0-10.0); %Monocytes 12.5 % (0.0-10.0); %Neutrophils 67.8 % (42.0-75.0)
[2020-01-04] MEDS: Cyanocobalamin (Vitamin B-12) 1,000 MCG TAB PO SCH (09:00)
[2020-01-04] MEDS: Senokot S 8.6-50 MG TAB PO SCH ×2 (09:01→21:02)
[2020-01-04] MEDS: Meloxicam 15 MG TAB PO SCH (09:01)
[2020-01-04] MEDS: Enoxaparin Sodium 30 MG/0.3 ML SYRINGE SC SCH (09:01)
[2020-01-04] MEDS ORDERED: Potassium Chloride 20 MEQ TAB PO SCH (14:02)
[2020-01-04] MEDS ORDERED: Sodium Chloride 0.9% 1,000 ML IV SCH (14:15)
[2020-01-04] MEDS: cefTRIAXone\\ROCEPHIN 1 GM in Sodium Chloride 0.9% 100 ML IVPB SCH (15:30)
--- NOTE | 2020-01-04 16:03 | PDOC.HOSPP ---
- Subjective Encounter Date: 01/04/20 Encounter Time: 08:00 Subjective: overnight, intolerant of potassium IV, IVF with infused potassium past due as result of slow K transfusion. This morning, feeling well and has no complaints. Was about to be discharged but hypotensive so bolusing and monitoring. - Objective Vital Signs & Weight: Vital Signs (12 hours) Temp Pulse Pulse Pulse Pulse Resp BP 01/04/20 15:15 98.8 F 76 12 01/04/20 11:32 78 97 77 90/53 L 01/04/20 11:20 97.6 F 79 19 01/04/20 09:31 88 93/51 L 01/04/20 09:02 96.8 F L 86 16 BP BP BP Pulse Ox 01/04/20 15:15 89/52 L 96 01/04/20 11:32 98/56 L 117/59 L 01/04/20 11:20 107/55 L 93 L 01/04/20 09:31 01/04/20 09:02 104/57 L 97 Weight Admit Weight 121 lb 1.6 oz Weight 121 lb 1.6 oz I&O: 01/03/20 01/04/20 01/05/20 06:59 06:59 06:59 Intake Total 940 Output Total 650 Balance 290 Result Diagrams: 01/04/20 04:33 01/04/20 04:33 Hospitalist ROS - Review of Systems Constitutional: denies: fever, chills, sweats, weakness, malaise, other Respiratory: denies: cough, dry, shortness of breath, hemoptysis, SOB with excertion, pleuritic pain, sputum, wheezing, other Cardiovascular: denies: chest pain, palpitations, orthopnea, paroxysmal noc. dyspnea, edema, light headedness, other Gastrointestinal: denies: nausea, vomiting, abdominal pain, diarrhea, constipation, melena, hematochezia, other Genitourinary: denies: dysuria, frequency, incontinence, hematuria, retention, other - Medication Medications: Active Medications Generic Name Dose Route Start Last Admin Trade Name Freq PRN Reason Stop Dose Admin Alprazolam 0.25 mg 01/03/20 21:00 01/03/20 21:03 Xanax PO 0.25 mg HS AARON Administration Aspirin 81 mg 01/03/20 21:00 01/03/20 21:02 Ecotrin PO 81 mg HS AARON Administration Atorvastatin Calcium 10 mg 01/03/20 21:00 01/03/20 21:02 Lipitor PO 10 mg HS AARON Administration Cholecalciferol 3,000 units 01/04/20 09:00 01/04/20 09:00 Vitamin D3 PO 3,000 units DAILY AARON Administration Cyanocobalamin 2,000 mcg 01/04/20 09:00 01/04/20 09:00 Vitamin B-12 PO 2,000 mcg DAILY AARON Administration Enoxaparin Sodium 30 mg 01/04/20 09:00 01/04/20 09:01 Lovenox SC 30 mg 0900 AARON Administration Ceftriaxone Sodium 1 gm/ 100 mls @ 200 mls/hr 01/03/20 15:00 01/04/20 15:30 Sodium Chloride IVPB 100 mls Q24HR AARON Administration Levothyroxine Sodium 88 mcg 01/04/20 06:00 01/04/20 05:25 Synthroid PO 88 mcg 0600 AARON Administration Meloxicam 15 mg 01/04/20 09:00 01/04/20 09:01 Mobic PO 15 mg DAILY AARON Administration Pantoprazole Sodium 40 mg 01/04/20 09:00 01/04/20 09:01 Protonix PO 40 mg DAILY AARON Administration Senna/Docusate Sodium 2 tab 01/03/20 21:00 01/04/20 09:01 Senokot S PO 2 tab BID AARON Administration - Exam General Appearance: NAD, awake alert Heart: RRR, no murmur, no gallops Respiratory: CTAB, no wheezes, no rales, no ronchi Gastrointestinal: soft, non-tender, non-distended, normal bowel sounds Extremities: no edema Psychiatric: normal affect, normal behavior, A&O x 3 Hosp A/P - Plan #complicated UTI -responding to treatment; hypotensive prior to discharge so bolusing and keeping overnight to monitor #hypokalemia/hyponatremia -likely result of hypovolemia, urinary frequency, medications -changed HCTZ to chlorthalidone on discharge; however, if remains borderline hypotensive may consider discontinuing altogether
--- NOTE | 2020-01-04 18:39 | PDOC.EVN ---
Event Note - Event Note Event Note: paged by nurse. Patient retaining ~850cc based on bladder scan. will check postvoids and if retaining x 2, place tovar
[2020-01-04] MEDS: ALPRAZolam 0.25 MG TAB PO SCH (21:02)
[2020-01-04] MEDS: Aspirin 81 mg Enteric Coated Tablet PO SCH (21:02)
[2020-01-04] MEDS: Atorvastatin Calcium 10 MG TAB PO SCH (21:02)
[2020-01-05 04:45] LABS: Anion Gap 10 mmol/L (10-20); BUN (Urea Nitrogen) 7 mg/dL (9.8-20.1); Calc. Creatinine Clearance 59 mL/min (70-130); Calcium 7.8 mg/dL (7.8-10.44); Carbon Dioxide 23 mmol/L (23-31); Chloride 100 mmol/L (98-107); Estimated GFR-MDRD Greater than 90; Glucose 81 mg/dL (83-110); Magnesium 1.6 mg/dL (1.6-2.6); Potassium 3.6 mmol/L (3.5-5.1); Sodium 129 mmol/L (136-145)
[2020-01-05] MEDS: Levothyroxine Sodium 88 MCG TAB PO SCH (05:44)
[2020-01-05] MEDS: Cyanocobalamin (Vitamin B-12) 1,000 MCG TAB PO SCH (08:26)
[2020-01-05] MEDS: Meloxicam 15 MG TAB PO SCH (08:26)
[2020-01-05] MEDS: Senokot S 8.6-50 MG TAB PO SCH ×2 (08:26→19:53)
[2020-01-05] MEDS: Enoxaparin Sodium 30 MG/0.3 ML SYRINGE SC SCH (08:26)
[2020-01-05] MEDS: cefTRIAXone\\ROCEPHIN 1 GM in Sodium Chloride 0.9% 100 ML IVPB SCH (14:44)
--- NOTE | 2020-01-05 16:48 | PDOC.HOSPP ---
- Subjective Encounter Date: 01/05/20 Encounter Time: 16:00 Subjective: Pt seen for followup re; urinary retention. Denies any other complaints. - Objective Vital Signs & Weight: Vital Signs (12 hours) Temp Pulse Pulse Pulse Pulse Resp BP 01/05/20 15:48 97.5 F L 76 16 01/05/20 11:04 97.7 F 84 16 01/05/20 10:20 81 80 01/05/20 09:24 78 81 108/52 L 01/05/20 07:27 98 F 73 16 BP BP BP Pulse Ox 01/05/20 15:48 107/55 L 95 01/05/20 11:04 100/54 L 95 01/05/20 10:20 118/61 100/58 L 01/05/20 09:24 123/60 01/05/20 07:27 95/53 L 94 L Weight Admit Weight 121 lb 1.6 oz Weight 121 lb 1.6 oz I&O: 01/04/20 01/05/20 01/06/20 06:59 06:59 06:59 Intake Total 940 2170 Output Total 650 1850 Balance 290 320 Result Diagrams: 01/04/20 04:33 01/05/20 04:15 Additional Labs: Labs and MARs reviewed by me EKG Reviewed by me: Yes (Tele: NSR) Hospitalist ROS - Review of Systems Cardiovascular: denies: chest pain, palpitations, orthopnea, paroxysmal noc. dyspnea, edema, light headedness Gastrointestinal: denies: nausea, vomiting, abdominal pain, diarrhea, constipation, melena, hematochezia Genitourinary: reports: retention - Medication Medications: Active Medications Generic Name Dose Route Start Last Admin Trade Name Freq PRN Reason Stop Dose Admin Alprazolam 0.25 mg 01/03/20 21:00 01/04/20 21:02 Xanax PO 0.25 mg HS AARON Administration Aspirin 81 mg 01/03/20 21:00 01/04/20 21:02 Ecotrin PO 81 mg HS AARON Administration Atorvastatin Calcium 10 mg 01/03/20 21:00 01/04/20 21:02 Lipitor PO 10 mg HS AARON Administration Cholecalciferol 3,000 units 01/04/20 09:00 01/05/20 08:26 Vitamin D3 PO 3,000 units DAILY AARON Administration Cyanocobalamin 2,000 mcg 01/04/20 09:00 01/05/20 08:26 Vitamin B-12 PO 2,000 mcg DAILY AARON Administration Enoxaparin Sodium 30 mg 01/04/20 09:00 01/05/20 08:26 Lovenox SC 30 mg 0900 AARON Administration Ceftriaxone Sodium 1 gm/ 100 mls @ 200 mls/hr 01/03/20 15:00 01/05/20 14:44 Sodium Chloride IVPB 100 mls Q24HR AARON Administration Levothyroxine Sodium 88 mcg 01/04/20 06:00 01/05/20 05:44 Synthroid PO 88 mcg 0600 AARON Administration Meloxicam 15 mg 01/04/20 09:00 01/05/20 08:26 Mobic PO 15 mg DAILY AARON Administration Pantoprazole Sodium 40 mg 01/04/20 09:00 01/05/20 08:26 Protonix PO 40 mg DAILY AARON Administration Senna/Docusate Sodium 2 tab 01/03/20 21:00 01/05/20 08:26 Senokot S PO 2 tab BID AARON Administration Sodium Chloride 10 ml 01/04/20 21:00 01/05/20 08:27 Flush - Normal Saline IVF 10 ml Q12HR AARON Administration - Exam General Appearance: awake alert Eye: anicteric sclera ENT: normocephalic atraumatic, no oropharyngeal lesions Neck: supple, no JVD Heart: RRR, no rubs Respiratory: CTAB, normal chest expansion Gastrointestinal: soft, non-tender, normal bowel sounds Extremities: no cyanosis Psychiatric: normal affect, normal behavior Hosp A/P - Plan plan discussed w/ family, continue antibiotics, out of bed/ambulate - Plan #urinary retention -Goldsmith catheter placed. Consult urology. #complicated UTI -due to pansensitive E. coli, switch to oral ciprofloxacin. #hypotension -Pt reports that her baseline blood pressure is low. Avoid antihypertensives. #hyponatremia -likely result of hydrochrothiazide use. #hypokalemia -resolved.
[2020-01-05] MEDS: Atorvastatin Calcium 10 MG TAB PO SCH (19:53)
[2020-01-05] MEDS: ALPRAZolam 0.25 MG TAB PO SCH (19:53)
[2020-01-05] MEDS: Ciprofloxacin 500 MG TAB PO SCH (19:53)
[2020-01-05] MEDS: Aspirin 81 mg Enteric Coated Tablet PO SCH (19:53)
--- NOTE | 2020-01-06 01:01 | CON ---
DATE OF CONSULTATION: 01/05/2020 REASON FOR CONSULTATION: Incomplete bladder emptying, urinary tract infection. HISTORY OF PRESENT ILLNESS: Ms. Knox is an 84-year-old female who presented to the hospital on 01/03/20. She was brought to the hospital for complaints of weakness and . noted to be hypotensive and for that reason, she was admitted to the hospital. On evaluation in the emergency room, she was also noted to be hypotensive. She was resuscitated with fluids and responded well. Urinalysis was consistent with urinary tract infection and culture was obtained. The culture since demonstrated E. coli. The patient states she has had urinary tract infections for her entire life. She typically has dysuria when she has urinary tract infection. She has chronic urinary frequency. She denies any prior bladder surgery. Her most recent imaging of the urinary tract was in 2018 and it was normal. She was having some difficulty voiding and so she underwent straight catheterization last night. Today, again difficulty was noted and the Goldsmith catheter was placed for 600 mL of cloudy urine. She denies any prior history of retention. PAST MEDICAL HISTORY: Hypothyroidism, hyperlipidemia, hypertension, gastroesophageal reflux disease, intracranial hemorrhage earlier this year. No surgical intervention for that. PAST SURGICAL HISTORY: Includes back surgery, hysterectomy, laparoscopic cholecystectomy. SOCIAL HISTORY: She is a nonsmoker and nondrinker. She lives at home and her son lives with her. FAMILY HISTORY: Significant for lung cancer and breast cancer. MEDICATIONS: Please see chart. ALLERGIES: NO KNOWN DRUG ALLERGIES. REVIEW OF SYSTEMS: RESPIRATORY: No shortness of breath. CARDIOVASCULAR: No chest pain or palpitations. GASTROINTESTINAL: Denies chronic constipation or diarrhea. GENITOURINARY: Please see history of present illness. NEUROLOGIC: No focal deficits since recent intracranial hemorrhage. PHYSICAL EXAMINATION: GENERAL: She is awake and alert. She is in no distress. She answers questions appropriately. VITAL SIGNS: Temperature 98.7, blood pressure 142/82, respiratory rate 16. HEENT: Normocephalic, atraumatic. NECK: Supple without masses. CHEST: Clear to auscultation. CARDIOVASCULAR: No murmurs. ABDOMEN: Soft, nontender. No palpable masses. Liver and spleen not palpable. No abdominal tenderness noted. : Goldsmith catheter is in place. Urine is clear. DIAGNOSTIC DATA: Urine culture positive on 01/03/2020, E. coli, hu sensitive. IMPRESSION: Ms. Knox is an 84-year-old female who gives a history of lifelong infections. On review of her chart at [facility], she has only had one urine culture since 2018 other than the one during this current admission. She was noted to have incomplete bladder emptying with a residual of 600 mL today. Urine was initially quite cloudy. It is possible that her incomplete bladder emptying is chronic and is the reason for her recurrent urinary tract infections. RECOMMENDATIONS: Goldsmith catheter to stay in place for 1 week. Catheter removal in 1 week for voiding trial with followup to determine adequacy of voiding. This patient may be discharged home from Urologic standpoint once cleared by Medicine. She should be discharged home with her Goldsmith catheter in place and with culture specific antibiotic therapy. Job ID: [id number] [facility]
[2020-01-06] MEDS: Levothyroxine Sodium 88 MCG TAB PO SCH (05:14)
[2020-01-06] MEDS: Ciprofloxacin 500 MG TAB PO SCH ×2 (05:14→20:30)
[2020-01-06] MEDS: Cyanocobalamin (Vitamin B-12) 1,000 MCG TAB PO SCH (09:29)
[2020-01-06] MEDS: Senokot S 8.6-50 MG TAB PO SCH ×2 (09:29→20:30)
[2020-01-06] MEDS: Enoxaparin Sodium 30 MG/0.3 ML SYRINGE SC SCH (09:30)
[2020-01-06] MEDS: Meloxicam 15 MG TAB PO SCH (09:30)
[2020-01-06] MEDS: cefTRIAXone\\ROCEPHIN 1 GM in Sodium Chloride 0.9% 100 ML IVPB SCH (15:44)
--- NOTE | 2020-01-06 17:02 | PDOC.HOSPP ---
- Subjective Encounter Date: 01/06/20 Encounter Time: 08:20 Subjective: Pt seen for followup re: urinary retention. Feels better today. - Objective Vital Signs & Weight: Vital Signs (12 hours) Temp Pulse Resp BP BP BP Pulse Ox 01/06/20 15:40 98.1 F 81 16 109/58 L 97 01/06/20 14:40 136/69 109/57 L 01/06/20 11:20 97.9 F 77 12 101/56 L 94 L 01/06/20 07:28 98.2 F 78 18 117/58 L 96 Weight Admit Weight 121 lb 1.6 oz Weight 121 lb 1.6 oz I&O: 01/05/20 01/06/20 01/07/20 06:59 06:59 06:59 Intake Total 2170 1360 Output Total 1850 2500 Balance 320 -1140 Result Diagrams: 01/04/20 04:33 01/05/20 04:15 Additional Labs: Labs and MARs reviewed by me EKG Reviewed by me: Yes (Tele: NSR) Hospitalist ROS - Review of Systems Respiratory: denies: cough, shortness of breath, SOB with excertion, pleuritic pain, wheezing Gastrointestinal: denies: nausea, vomiting, abdominal pain, diarrhea, constipation, melena, hematochezia - Medication Medications: Active Medications Generic Name Dose Route Start Last Admin Trade Name Freq PRN Reason Stop Dose Admin Alprazolam 0.25 mg 01/03/20 21:00 01/05/20 19:53 Xanax PO 0.25 mg HS AARON Administration Aspirin 81 mg 01/03/20 21:00 01/05/20 19:53 Ecotrin PO 81 mg HS AARON Administration Atorvastatin Calcium 10 mg 01/03/20 21:00 01/05/20 19:53 Lipitor PO 10 mg HS AARON Administration Cholecalciferol 3,000 units 01/04/20 09:00 01/06/20 09:30 Vitamin D3 PO 3,000 units DAILY AARON Administration Ciprofloxacin 500 mg 01/05/20 20:00 01/06/20 05:14 Cipro PO 500 mg 06,2000 AARON Administration Cyanocobalamin 2,000 mcg 01/04/20 09:00 01/06/20 09:29 Vitamin B-12 PO 2,000 mcg DAILY AARON Administration Enoxaparin Sodium 30 mg 01/04/20 09:00 01/06/20 09:30 Lovenox SC 30 mg 09 AARON Administration Levothyroxine Sodium 88 mcg 01/04/20 06:00 01/06/20 05:14 Synthroid PO 88 mcg 0600 AARON Administration Meloxicam 15 mg 01/04/20 09:00 01/06/20 09:30 Mobic PO 15 mg DAILY AARON Administration Pantoprazole Sodium 40 mg 01/04/20 09:00 01/06/20 09:30 Protonix PO 40 mg DAILY AARON Administration Senna/Docusate Sodium 2 tab 01/03/20 21:00 01/06/20 09:29 Senokot S PO 2 tab BID AARON Administration Sodium Chloride 10 ml 01/04/20 21:00 01/06/20 09:32 Flush - Normal Saline IVF 10 ml Q12HR AARON Administration - Exam General Appearance: awake alert Eye: anicteric sclera ENT: no oropharyngeal lesions Neck: no thyromegaly, no lymphadenopathy Heart: RRR Respiratory: CTAB Gastrointestinal: soft, non-tender, no palpable masses Musculoskeletal: no muscle wasting Psychiatric: normal affect, normal behavior Hosp A/P - Plan plan discussed w/ family, continue antibiotics, out of bed/ambulate - Plan #urinary retention -Pt to follow up with urology as outpt. Home with Goldsmith. #complicated UTI -continue ciprofloxacin #hypotension -Avoid antihypertensives. #hyponatremia -Check AM labs #hypokalemia -resolved.
[2020-01-06] MEDS: ALPRAZolam 0.25 MG TAB PO SCH (20:30)
[2020-01-06] MEDS: Aspirin 81 mg Enteric Coated Tablet PO SCH (20:30)
[2020-01-06] MEDS: Atorvastatin Calcium 10 MG TAB PO SCH (20:30)
[2020-01-07 04:11] LABS: #Eosinphils 0.2 thou/uL (0.0-0.7); #Lymphocytes 2.4 thou/uL (1.20-3.40); #Neutrophils 2.8 thou/uL (1.40-6.50); %Basophils 0.6 % (0.0-1.0); %Eosinophils 3.7 % (0.0-10.0); %Monocytes 14.9 % (0.0-10.0); %Neutrophils 43.8 % (42.0-75.0); Hemoglobin 9.7 g/dL (12.0-16.0); Mean Corpuscular Hemoglobin 30.7 pg (27.0-31.0); Mean Corpuscular Volume 92.9 fL (78.0-98.0); Mean Platelet Volume 7.4 fL (7.4-10.4); Platelet Count 280 thou/uL (130-400); RBC Distribution Width 12.7 % (11.5-14.5); Red Blood Cell (RBC) Count 3.15 mill/uL (4.20-5.40); White Blood Cell (WBC) Count 6.4 thou/uL (4.8-10.8)
[2020-01-07 04:29] LABS: Anion Gap 9 mmol/L (10-20); BUN (Urea Nitrogen) 10 mg/dL (9.8-20.1); Calc. Creatinine Clearance 46 mL/min (70-130); Calcium 8.2 mg/dL (7.8-10.44); Carbon Dioxide 27 mmol/L (23-31); Chloride 100 mmol/L (98-107); Estimated GFR-MDRD 72; Glucose 93 mg/dL (83-110); Potassium 3.3 mmol/L (3.5-5.1); Sodium 133 mmol/L (136-145)
[2020-01-07] MEDS: Levothyroxine Sodium 88 MCG TAB PO SCH (05:46)
[2020-01-07] MEDS: Ciprofloxacin 500 MG TAB PO SCH (05:46)
[2020-01-07] MEDS ORDERED: Potassium Chloride 20 MEQ TAB PO SCH (08:30)
[2020-01-07] MEDS: Senokot S 8.6-50 MG TAB PO SCH (09:04)
[2020-01-07] MEDS: Meloxicam 15 MG TAB PO SCH (09:04)
[2020-01-07] MEDS: Cyanocobalamin (Vitamin B-12) 1,000 MCG TAB PO SCH (09:04)
[2020-01-07] MEDS: Enoxaparin Sodium 30 MG/0.3 ML SYRINGE SC SCH (09:05)
[2020-01-07 12:20] VITALS: BP 117/59; TEMP 98.4
--- NOTE | 2020-01-07 12:39 | DIS ---
DATE OF ADMISSION: 01/03/2020 DATE OF DISCHARGE: 01/07/2020 PRIMARY CARE PROVIDER: Dr. Jonatan Lira. DISCHARGE DIAGNOSES: 1. Complicated urinary tract infection. 2. Urinary retention. 3. Hypomagnesemia. 4. Hypokalemia. 5. Hyponatremia. CONDITION OF PATIENT ON THE DAY OF DISCHARGE: Stable. I assessed Ms. Knox on the day of discharge. She denies any chest pain or shortness of breath. Vital signs are stable. S1 and S2 are heard, regular. Lungs are clear to auscultation bilaterally. DISCHARGE MEDICATIONS: 1. Ciprofloxacin 500 mg 2 times daily for 10 days. 2. Xanax 0.25 mg at bedtime. 3. Aspirin 81 mg at bedtime. 4. Lipitor 10 mg at bedtime. 5. Vitamin D3 3000 units daily. 6. Vitamin B12 2000 mcg daily. 7. Levothyroxine 88 mcg daily. 8. Meloxicam 15 mg daily. 9. Omeprazole 20 mg daily. 10. Tizanidine 2 mg 3 times a day as needed. CONSULTATIONS DURING THIS HOSPITALIZATION: Urology, Dr. Johnson. HOSPITAL COURSE: Ms. Knox is a pleasant 84-year-old lady, who was admitted to [facility] on January 03, 2020 for a complicated urinary tract infection. Please refer to Dr. Matias's history and physical note dated January 03, 2020 for further details. She was initially treated with intravenous antibiotics. She was hyponatremic, and the cause was felt to be hydrochlorothiazide use. Hydrochlorothiazide was discontinued. Her blood pressures were borderline low, therefore she has not been started on any antihypertensives at this time. Urine cultures grew pansensitive Escherichia coli. She has been switched to ciprofloxacin. She was found to have urinary retention. She was seen by Urology Service. They recommended discharging her with Goldsmith catheter and catheter removal in 1 week for voiding trial with followup. They also felt that the incomplete bladder emptying is chronic and it is the reason for her recurrent urinary tract infections. Arrangements are being made for home health for Goldsmith catheter management. Many thanks for allowing me to participate in your patient's care. Please feel free to contact me with any questions or concerns. DIET: Heart healthy. ACTIVITY: As tolerated. Post acute care followup: With primary care provider in 3 days and with urologist in 1 week. DISCHARGE DESTINATION: Home. TIME SPENT: Total amount of time spent coordinating this discharge: 31 minutes. Job ID: [id number]
--- NOTE | 2020-01-09 05:51 | PQF ---
YOSEF CALDWELL DAVID [id number] [facility]-258 [id number] CLINICAL DOCUMENTATION CLARIFICATION FORM: POST DISCHARGE Addendum to original discharge summary date: ____ Late entry note date: __ DATE: 01/09/20 ATTN: Vikas Boyer Please exercise your independent, professional judgment in responding to the clarification form. Clinical indicators are provided on the bottom of this form for your review Can you please further clarify if Sepsis is ruled in or ruled out? Sepsis [ ] Ruled in diagnosis [ ] Continue to treat [ ] Resolved [ x ] Ruled out diagnosis [ ] Cannot rule out diagnosis [ ] Other diagnosis [ ] Unable to determine For continuity of documentation, please document condition throughout progress notes and discharge summary. Thank You. CLINICAL INDICATORS - SIGNS / SYMPTOMS / LABS ED Provider pg.3- Sepsis ED Provider pg.3- Presents in the ED with generalized weakness and hypotension VS: BP- 108/54, 100/41, 97/44, 101/55, 97/47 H and P pg.1- patient had multiple episodes of UTI in the past H and P pg.2- the patient is hypotensive on presentation Microbiology- Urine culture Escherichia coli Laboratory- WBC 12.5H,13.9H, 6.4 Vital Signs 01/02: Temp=98.7 Pulse=80 Respi=16 Labs Lactate: 01/02=3.5 Collected 01/02 Blood culture:no growth for 5 days" RISK FACTORS 84 years old- H and P pg.1 Recurrent UTI- H and P pg.1 Complicated UTI- H and P pg.2 Electrolytes imbalances- H and P pg.2 TREATMENTS IV Fluids- MAR Urine culture- Microbiology Goldsmith catheter insertion- Event notes Vancomycin 1gm IV- MAR Cefepime 2gm IV- MAR Ciprofloxacin 500mg PO- MAR Sepsis protocol initiated ED Notes 01/02 Blood culture-Collected 01/02 (This form is maintained as a part of the permanent medical record) 2014 [employer] All Rights Reserved [email or web address]
== END 2020-01-07 13:35 | disposition home health service (06) | DRG 690 ==
LOC: ERS 10:22 → 2NO 12:46
PROVIDERS: ADMIT Internal Medicine; ATTEND Internal Medicine
PROC: 0T9B70Z Drainage of Bladder with Drainage Device, Via Natural or Artificial Opening (ICD-10-PCS; principal; 2020-01-04)
DX: N39.0 Urinary tract infection, site not specified (principal); E87.1 Hypo-osmolality and hyponatremia; R33.9 Retention of urine, unspecified; E83.42 Hypomagnesemia; E87.6 Hypokalemia; B96.20 Unspecified Escherichia coli [E. coli] as the cause of diseases classified elsewhere; I10 Essential (primary) hypertension; E78.5 Hyperlipidemia, unspecified; E03.9 Hypothyroidism, unspecified; K21.9 Gastro-esophageal reflux disease without esophagitis; M19.90 Unspecified osteoarthritis, unspecified site; F41.9 Anxiety disorder, unspecified; I95.9 Hypotension, unspecified; Z79.890 Hormone replacement therapy; Z79.899 Other long term (current) drug therapy; Z90.49 Acquired absence of other specified parts of digestive tract; Z90.710 Acquired absence of both cervix and uterus
CPT/HCPCS: 36415; 36416; 51701; 71045; 80048; 80053; 81003; 81015; 82550; 82553; 83605; 83735; 84100; 84443; 84484; 85025; 87040; 87077; 87086; 87186; 93005; 96360; 96361; 96365; 96367; 99292; J0692; J0696; J1650; J3370; J3475; J3480; J3490; J7050

== ENCOUNTER 2021-05-28 10:05 | Outpatient (CLI) | payer MEDICARE, BC | END 2021-05-28 10:06 | disposition home or self-care (01) | LOC: BICMRI 10:05 | PROVIDERS: ATTEND Family Medicine | DX: G31.84 Mild cognitive impairment of uncertain or unknown etiology (principal); R41.3 Other amnesia; I69.198 Other sequelae of nontraumatic intracerebral hemorrhage; R90.89 Other abnormal findings on diagnostic imaging of central nervous system | CPT/HCPCS: 70553; 82565 ==

== ENCOUNTER 2021-12-21 09:15 | Outpatient (CLI) | payer MEDICARE, BC | END 2021-12-21 09:16 | disposition home or self-care (01) | LOC: BICCT 09:15 | PROVIDERS: ATTEND Psychiatry & Neurology Neurology | DX: G31.84 Mild cognitive impairment of uncertain or unknown etiology (principal) | CPT/HCPCS: 70450 ==